=== PATIENT | male | born 1940 | race Caucasian/White ===

== ENCOUNTER 2018-06-12 16:20 | Inpatient (IN) | payer MEDICARE ==
--- NOTE | 2018-06-12 16:37 | ED Physician Chart ---
ED Chief Complaint/HPI - Patient Information Date Seen:: 06/12/18 Time Seen:: 16:50 Chief Complaint:: Depression History of Present Illness:: onset x 2 days of depression; no report of trauma, LOC, ALOC, AMS, SIs, H/As, neck pain, C/P, SOB, Abd. pain, A/N/V/D/C, fever, chills, or urinary s/s Historian:: Patient, EMS Review:: Nurse's Note Reviewed, Old Chart Reviewed, EMS run form Reviewed ED Review of Systems - Review of Systems General/Constitutional: No fever, No chills, No weight loss, No weakness, No diaphoresis, No edema, No loss of appetite Skin: No skin lesions, No rash, No bruising Head: No headache, No light-headedness Eyes: No loss of vision, No pain, No diplopia ENT: No earache, No nasal drainage, No sore throat, No tinnitus Neck: No neck pain, No swelling, No thyromegaly, No stiffness, No mass noted Cardio Vascular: No chest pain, No palpitations, No PND, No orthopnea, No edema Pulmonary: No SOB, No cough, No sputum, No wheezing GI: No nausea, No vomiting, No diarrhea, No pain, No melena, No hematochezia, No constipation, No hematemesis G/U: No dysuria, No frequency, No hematuria, No nacturia Musculoskeletal: No bone or joint pain, No back pain, No muscle pain Endocrine: No polyuria, No polydipsia Psychiatric: Prior psych history, Depression, Anxiety, No suicidal ideation, No homicidal ideation, No auditory hallucination, No visual hallucination Hematopoietic: No bruising, No lymphadenopathy Allergic/Immuno: No urticaria, No angioedema Neurological: No syncope, No focal symptoms, No weakness, No paresthesia, No headache, No seizure, No dizziness, Confusion, No vertigo ED Past Medical History - Past Medical History Obtainable: Yes Past Medical History: HTN, DM, CHF, Dyslipidemia, Dementia Family History: HTN Social History: Non Smoker, No Alcohol, No Drug Use, Single, Care Facility Surgical History: None Psychiatricy History: Depression, Dementia Medication: Reviewed Family Medical History - Family Member Mother History Unknown: Yes ED Physical Exam - Physical Examination General/Constitutional: Awake, Well-developed, well-nourished, Alert, No distress, GCS 15, Non-toxic appearing, Ambulatory Head: Atraumatic Eyes: Lids, conjuctiva normal, PERRL, EOMI Skin: Nl inspection, No rash, No skin lesions, No ecchymosis, Well hydrated, No lymphadenopathy ENMT: External ears, nose nl, TM canals nl, Nasal exam nl, Lips, teeth, gums nl , Oropharynx nl, Tonsils nl Neck: Nontender, Full ROM w/o pain, No JVD, No nuchal rigidity, No bruit, No mass, No stridor Respiratory: Nl effort/Exclusion, Clear to Auscultation, No Wheeze/Rhonchi/Rales Cardio Vascular: RRR, No murmur, gallop, rubs, NL S1 S2, Carotid/Femoral/Distal pulses equal bilaterally GI: No tenderness/rebounding/guarding, No organomegaly, No hernia, Normal BS's, Nondistended, No mass/bruits, No McBurney tenderness : No CVA tenderness Extremities: No tenderness or effusion, Full ROM, normal strength in all extremities, No edema, Normal digits & nails Neuro/Psych: Alert/oriented, DTR's symmetric, Normal sensory exam, Normal motor strength, Judgement/insight normal, Mood normal, Normal gait, No focal deficits Other Neuro/Psych comments:: + Psychomotor Retardation; no SIs; Disoriented and Confused; Mood/Affect: Labile Misc: Normal back, No paraspinal tenderness ED Labs/Radiology/EKG Results - Lab Results Comments:: Reviewed - EKG Interpretations EKG Time:: 17:02 Rate & Rhythm: 62; NSR Comments:: non-specific st-t changes ED Septic Shock - . Is Septic Shock (SBP<90, OR Lactate>4 mmol\L) present?: No ED Reassessment (Disposition) - Reassessment Reassessment Condition:: Improved - Diagnosis Diagnosis:: Depression; Dementia; Medical Clearance; UTI; Bipolar Disorder - Aftercare/Follow up Instructions Aftercare/Follow-Up Instructions:: Counseled pt regarding lab results/diagnosis & need follow up, Counseled pt & family regarding lab results/diagnosis & need follow up - Patient Disposition Discharge/Transfer:: Acute Care w/in this hosp Admitted to:: [facility] Condition at Disposition:: Stable, Improved
[2018-06-12 17:00] LABS: BASOPHILE ABSOLUTE 0.1 Th/cumm (0-0.2); EOSINOPHILE ABSOLUTE 0.6 Th/cmm (0.1-0.4); HEMOGLOBIN 13.7 gm/dL (12-16); LYMPHOCYTE ABSOLUTE 1.6 Th/cmm (1.5-3.0); MEAN PLATELET VOLUME 8.1 fl; MONOCYTE ABSOLUTE 0.6 Th/cmm (0.3-1.0)
[2018-06-12 17:02] LABS: % BASOPHILS 0.9 % (0.0-2.0); % EOSINOPHILS 7.2 % (0.0-5.0); % LYMPHOCYTES 19.5 % (20.0-50.0); % MONOCYTES 7.6 % (2.0-10.0); % NEUTROPHILS 64.8 % (40.0-80.0); HEMATOCRIT 40.2 % (41.0-60); MEAN CELL VOLUME 91.4 fl (80-99); MEAN CORPUSCULAR HEMOGLOBIN 31.3 pg (27.0-31.0); MEAN CORPUSCULAR HGB CONC 34.2 pg (28.0-36.0); NEUTROPHILE ABSOLUTE 5.4 Th/cmm (1.8-8.0); PLATELET COUNT 254 Th/cmm (150-400); RED CELL DISTRIBUTION WIDTH 13.4 % (11.5-20.0); WHITE BLOOD COUNT 8.3 Th/cmm (4.8-10.8)
[2018-06-12 17:14] LABS: URINE SOURCE CLEAN C
[2018-06-12 17:21] LABS: ACETAMINOPHEN < 10.0 ug/mL (10.0-30.0); ALBUMIN 3.6 gm/dL (4.2-5.5); ALKALINE PHOSPHATASE 131 U/L (34-104); ANION GAP 12.2 (7.0-16.0); BILIRUBIN,TOTAL 0.3 mg/dL (0.3-1.0); BUN - UREA NITROGEN 29 mg/dL (7-25); CALCIUM SERUM 9.1 mg/dL (8.6-10.3); CARBON DIOXIDE 27.1 mEq/L (21.0-31.0); CHLORIDE 102 mEq/L (98-107); CHOLESTEROL 114 mg/dL (<200); CREATININE - SERUM 1.1 mg/dL (0.7-1.3); GLUCOSE 149 mg/dL (70-105); HDL -HIGH DENSITY LIPOPROTEIN 34 mg/dL (23-92); POTASSIUM SERUM 4.3 mEq/L (3.5-5.1); SGOT 22 U/L (13-39); SGPT/ALT 25 U/L (7-52); SODIUM SERUM 137 mEq/L (136-145); TOTAL PROTEIN,SERUM 7.1 gm/dL (6.0-8.3); TRIGLYCERIDES 131 mg/dL (<150)
[2018-06-12 17:25] LABS: SALICYLATES (ASPIRIN) < 25.0 mg/L (30.0-100.0)
[2018-06-12 17:31] LABS: AMPHETAMINE URINE NEGATIVE (NEGATIVE); BARBITURATES URINE NEGATIVE (NEGATIVE); BENZODIAZEPINES QUAL URINE NEGATIVE (NEGATIVE); CANNABINOID THC NEGATIVE (NEGATIVE); COCAINE METABOLITE QUAL URINE NEGATIVE (NEGATIVE); METHADONE URINE NEGATIVE (NEGATIVE); METHAMPHETAMINES QUAL URINE NEGATIVE (NEGATIVE); OPIATES (MORPHINE) QUAL. URINE NEGATIVE (NEGATIVE); PHENCYCLIDINE (PCP) URINE NEGATIVE (NEGATIVE); TRICYCLICS (TCA) QUAL. URINE NEGATIVE (NEGATIVE)
[2018-06-12 17:37] LABS: URINE BILIRUBIN NEGATIVE (NEGATIVE); URINE BLOOD TRACE (NEGATIVE); URINE CLARITY HAZY (CLEAR); URINE COLOR YELLOW; URINE GLUCOSE (UA) NEGATIVE (NEGATIVE); URINE KETONE NEGATIVE (NEGATIVE); URINE LEUKOCYTE ESTERASE LARGE (NEGATIVE); URINE MICROSCOPIC INDICATED? YES; URINE NITRATE POSITIVE (NEGATIVE); URINE PH 6.5 (4.6 - 8.0); URINE PROTEIN NEGATIVE (NEGATIVE); URINE UROBILINOGEN 0.2 E.U./dL (0.2 - 1.0)
[2018-06-12 17:40] LABS: URINE BACTERIA 4+ /hpf (NONE SEEN); URINE EPITHELIAL CELLS FEW /lpf (FEW); URINE WBC 50-100 /hpf (0-5)
[2018-06-12 20:11] VITALS: BP 144/88
[2018-06-12] MEDS ORDERED: Docusate Sodium/Senna Tab PO PRN (22:07)
[2018-06-12] MEDS ORDERED: Acetaminophen 500 MG TAB PO PRN (22:07)
[2018-06-12] MEDS ORDERED: Magnesium Hydroxide (MOM) 30 mL UDC PO PRN (22:07)
[2018-06-13 06:34] LABS: CHOLESTEROL 108 mg/dL (<200); HDL -HIGH DENSITY LIPOPROTEIN 35 mg/dL (23-92); TRIGLYCERIDES 94 mg/dL (<150)
[2018-06-13] MEDS: Multivitamin w/ Minerals Tab PO SCH (08:55)
[2018-06-13] MEDS: INSULIN ASPART SLIDING SCALE 100 UNITS/ML UNIT SUBQ SCH ×2 (08:56→17:09)
--- NOTE | 2018-06-13 22:20 | Psychiatric Evaluation ---
DATE OF SERVICE: 06/12/2018 PSYCHIATRIC PROGRESS NOTE IDENTIFYING DATA: The patient is a 78-year-old male, resident of [facility]. Information was obtained by directly interviewing the patient as well as reviewing the admission papers and they are reliable. JUSTIFICATION FOR HOSPITALIZATION: The patient is admitted on a voluntary basis in view of his depression. CHIEF COMPLAINT: "I am feeling depressed." HISTORY OF PRESENT ILLNESS: This is the first psychiatric hospitalization to the [facility] for this patient, who has reported to have been feeling depressed. The patient has been having difficult time to cope with the stress. The patient is isolative and withdrawn. The patient has been feeling frustrated with his situation. The patient; however, has been having short term memory deficits and long-term memory seems to be fair and the patient is not able to articulate in detail the problems. PAST PSYCHIATRIC HISTORY: Details are not known. MEDICAL HISTORY AND PHYSICAL EXAMINATION: Requested to be done by Dr. Swartz. SUBSTANCE ABUSE HISTORY: None. PHYSICAL OR SEXUAL ABUSE HISTORY: None. LEGAL PROBLEMS: None at this time. STRENGTH AND ASSETS: The patient is motivated. MENTAL STATUS EXAMINATION: The patient is a 78-year-old looking his stated age, superficially cooperative. Eye contact is poor. Mood is noted to be depressed. Affect is constricted. Coping skills at this time are noted to be still poor. The patient has been having difficult time to cope with the stress. The patient has not been presenting with any suicidal ideation. No homicidal ideation is noted. The patient denies any auditory hallucinations. No delusions are noted, but the patient is getting easily frustrated when I am asking the questions. The patient's short term memory is noted to be poor and long-term memory seems to be fair. DIAGNOSTIC IMPRESSION: AXIS IA: Major depressive disorder, recurrent and moderate. AXIS IB: Dementia and behavioral change, secondary trait. IMMEDIATE TREATMENT PLAN: The patient is going to be observed on inpatient unit, provided with supportive psychotherapy. The patient is going to be closely monitored. Once stabilized, the patient is going to be discharged to the [facility] for further follow up. JOB# [id number]
[2018-06-14] MEDS ORDERED: Escitalopram Oxalate 5 mg Tab PO SCH (09:00)
[2018-06-14] MEDS: INSULIN ASPART SLIDING SCALE 100 UNITS/ML UNIT SUBQ SCH (09:04)
[2018-06-14] MEDS: Multivitamin w/ Minerals Tab PO SCH (09:04)
--- NOTE | 2018-06-14 13:19 | Progress Notes ---
DATE: 06/14/2018 SUBJECTIVE: Staff was spoken to. The patient is interviewed. Mood is noted to be anxious. The patient is isolative and withdrawn. Insight and judgment at this time, still impaired. Impulse control is limited. The patient's coping skills are noted to be very poor. The patient has been still not able to participate in any of the groups. The patient has no energy. The patient reporting that he is very tired. ASSESSMENT: The patient is still depressed. PLAN: To continue the patient with the supportive therapy and followup. JOB# [id number]
--- NOTE | 2018-06-15 18:18 | History & Physical ---
ADMIT DATE: 06/12/2018 HISTORY OF PRESENT ILLNESS: The patient was admitted on 06/12/2018. The patient had 2-day onset of severe depression. No loss of consciousness noted in the medical record, no change of consciousness. No history of neck pain, shortness of breath, etc. The patient came to the Emergency Room, was admitted from the Emergency Room. REVIEW OF SYSTEMS: Except for depression everything was negative. PAST MEDICAL HISTORY: The patient has a history of hypertension, diabetes, CHF, hyperlipidemia, and dementia. SOCIAL HISTORY: Nonsmoker. PSYCHIATRIC HISTORY: Depression and dementia. PHYSICAL EXAMINATION: GENERAL: Awake, alert, slightly confused. The patient is not in acute distress. No hallucination. HEAD: Normal. ENT: Normal. NECK: Supple, nontender. LUNGS: Clear. CARDIOVASCULAR SYSTEM: S1, S2 heard. ABDOMEN: Soft. Bowel sounds are heard. CENTRAL NERVOUS SYSTEM: Decreased sensorium. DIAGNOSES: Psychomotor retardation with slight confusion, history of hypertension, history of dementia was made. PLAN: The patient is being admitted and I will control his blood pressure and diabetes. I will have the psychiatrist, Dr. Galeana see the patient. I will follow the patient. Again, the diagnoses is acute aggressive behaviour, psychosis, history of hypertension, diabetes, CHF, hyperlipidemia. JOB# [id number]
== END 2018-06-14 15:00 | disposition short-term general hospital (02) | DRG 885 ==
LOC: ER 16:20 → GERO 18:44
PROVIDERS: ADMIT Psychiatry & Neurology Psychiatry; ATTEND Psychiatry & Neurology Psychiatry
DX: F33.1 Major depressive disorder, recurrent, moderate (principal); N39.0 Urinary tract infection, site not specified; F03.91 Unspecified dementia, unspecified severity, with behavioral disturbance; I11.0 Hypertensive heart disease with heart failure; I50.9 Heart failure, unspecified; E11.9 Type 2 diabetes mellitus without complications; E78.5 Hyperlipidemia, unspecified; Z82.49 Family history of ischemic heart disease and other diseases of the circulatory system
CPT/HCPCS: 36415-UA; 80053-TC; 80061-TC; 80307; 80320-TC; 80329-TC; 81001-TC; 82948-90; 83036-90; 84443-TC; 84484-TC; 85025-TC; 86592-TC; 87086-90; 93005; J1815; Z7610

== ENCOUNTER 2018-06-14 15:00 | Inpatient (IN) | payer MEDICARE ==
[2018-06-14 16:43] VITALS: BP 124/58
[2018-06-14] MEDS: Sodium Chloride 0.9% 1,000 ML IV SCH (17:16)
[2018-06-14 17:17] LABS: % BASOPHILS 0.9 % (0.0-2.0); % EOSINOPHILS 7.1 % (0.0-5.0); % LYMPHOCYTES 23.8 % (20.0-50.0); % MONOCYTES 10.1 % (2.0-10.0); % NEUTROPHILS 58.1 % (40.0-80.0); BASOPHILE ABSOLUTE 0.1 Th/cumm (0-0.2); EOSINOPHILE ABSOLUTE 0.5 Th/cmm (0.1-0.4); HEMATOCRIT 39.4 % (41.0-60); HEMOGLOBIN 13.4 gm/dL (12-16); LYMPHOCYTE ABSOLUTE 1.6 Th/cmm (1.5-3.0); MEAN CELL VOLUME 90.9 fl (80-99); MEAN CORPUSCULAR HGB CONC 34.1 pg (28.0-36.0); MONOCYTE ABSOLUTE 0.7 Th/cmm (0.3-1.0); NEUTROPHILE ABSOLUTE 3.8 Th/cmm (1.8-8.0); PLATELET COUNT 213 Th/cmm (150-400); RED BLOOD COUNT 4.33 Mil/cmm (3.80-5.80); WHITE BLOOD COUNT 6.7 Th/cmm (4.8-10.8)
[2018-06-14 17:38] LABS: ANION GAP 10.8 (7.0-16.0); BUN - UREA NITROGEN 28 mg/dL (7-25); CALCIUM SERUM 9.1 mg/dL (8.6-10.3); CARBON DIOXIDE 26.5 mEq/L (21.0-31.0); CHLORIDE 106 mEq/L (98-107); CREATININE - SERUM 1.4 mg/dL (0.7-1.3); GLUCOSE 104 mg/dL (70-105); POTASSIUM SERUM 4.3 mEq/L (3.5-5.1); SODIUM SERUM 139 mEq/L (136-145)
[2018-06-14] MEDS ORDERED: Influenza Vaccine (65 yr & older) 0.5 ml Syr IM ONE (17:50)
[2018-06-14] MEDS ORDERED: Pneumococcal Vaccine 0.5 mL Vial IM ONE (17:50)
[2018-06-14] MEDS ORDERED: Docusate Sodium/Senna Tab PO PRN (21:42)
[2018-06-14] MEDS ORDERED: Magnesium Hydroxide (MOM) 30 mL UDC PO PRN (21:42)
[2018-06-14] MEDS ORDERED: Acetaminophen 500 MG TAB PO PRN (21:42)
[2018-06-15] MEDS: Sodium Chloride 0.9% 1,000 ML IV SCH (05:53)
[2018-06-15 06:25] LABS: % BASOPHILS 1.1 % (0.0-2.0); % EOSINOPHILS 8.8 % (0.0-5.0); % LYMPHOCYTES 25.3 % (20.0-50.0); % MONOCYTES 9.4 % (2.0-10.0); % NEUTROPHILS 55.4 % (40.0-80.0); BASOPHILE ABSOLUTE 0.1 Th/cumm (0-0.2); EOSINOPHILE ABSOLUTE 0.6 Th/cmm (0.1-0.4); HEMATOCRIT 37.4 % (41.0-60); HEMOGLOBIN 12.7 gm/dL (12-16); LYMPHOCYTE ABSOLUTE 1.8 Th/cmm (1.5-3.0); MEAN CELL VOLUME 90.5 fl (80-99); MEAN CORPUSCULAR HEMOGLOBIN 30.8 pg (27.0-31.0); MEAN CORPUSCULAR HGB CONC 34.1 pg (28.0-36.0); MEAN PLATELET VOLUME 8.3 fl; MONOCYTE ABSOLUTE 0.7 Th/cmm (0.3-1.0); NEUTROPHILE ABSOLUTE 4.1 Th/cmm (1.8-8.0); PLATELET COUNT 196 Th/cmm (150-400); RED BLOOD COUNT 4.13 Mil/cmm (3.80-5.80); RED CELL DISTRIBUTION WIDTH 13.2 % (11.5-20.0); WHITE BLOOD COUNT 7.3 Th/cmm (4.8-10.8)
[2018-06-15 06:38] LABS: ANION GAP 10.9 (7.0-16.0); BUN - UREA NITROGEN 27 mg/dL (7-25); CALCIUM SERUM 8.7 mg/dL (8.6-10.3); CHLORIDE 106 mEq/L (98-107); CREATININE - SERUM 1.3 mg/dL (0.7-1.3); GLUCOSE 87 mg/dL (70-105); POTASSIUM SERUM 3.9 mEq/L (3.5-5.1); SODIUM SERUM 138 mEq/L (136-145)
[2018-06-15] MEDS: INSULIN ASPART SLIDING SCALE 100 UNITS/ML UNIT SUBQ SCH ×2 (08:43→17:45)
[2018-06-15] MEDS: Escitalopram Oxalate 5 mg Tab PO SCH (09:49)
[2018-06-15] MEDS: Multivitamin w/ Minerals Tab PO SCH (09:52)
[2018-06-15] MEDS ORDERED: Probiotic Screen MC PRN (10:19)
[2018-06-15] MEDS ORDERED: VTE Chemical Prophylaxis Screen/Admission MC PRN (10:52)
--- NOTE | 2018-06-15 14:10 | Consultation ---
Consult Note - Consult Note Service Date: 06/15/18 Referring Physician: Hector Swartz Consult Note: PHYSICIAN Consultation Note: Date of Admission: 06/14/18 Purpose of Consultation: UTI Chief Complaint: Patient PERCY LEMOS was admitted to [facility] with UTI. History of Present Illness: 78 year old male was brought from [facility] unit for UTI. Past Medical History: Allergies Allergy/AdvReac Type Severity Reaction Status Date / Time No Known Allergies Allergy Verified 06/12/18 16:51 Vital Signs Temp 97.8 F 06/15/18 11:25 Pulse 71 06/15/18 11:25 Resp 18 06/15/18 11:29 BP 130/52 06/15/18 11:25 Pulse Ox 97 06/15/18 11:25 Intake & Output 06/14/18 06/15/18 06/15/18 18:59 06:59 18:59 Intake Total 50 996.25 Output Total 350 350 Balance -300 646.25 Weight (lbs) 95.254 kg 95.254 kg Intake: Intake, IV Amount 996.25 Piperacillin Sodium/ 50 Tazobact 3.375 gm In Sodium Chloride 0.9% 50 ml @ 100 mls/hr IV Q8HR [facility] Rx#:[id number] Sodium Chloride 0.9% 1, 946.25 000 ml @ 75 mls/hr IV . [id number] [facility] Rx#:[id number] Oral 50 Output: Urine 350 350 Other: # Bowel Movements 1 1 Stool Characteristics Soft Weight Source Bedscale Patient stated Laboratory Results - last 24 hr 06/14/18 06/14/18 06/15/18 17:09 17:09 05:55 WBC 6.7 7.3 RBC 4.33 4.13 Hgb 13.4 12.7 Hct 39.4 L 37.4 L MCV 90.9 90.5 MCH 31.0 30.8 MCHC Differential 34.1 34.1 RDW 13.0 13.2 Plt Count 213 196 MPV 8.0 8.3 Neutrophils % 58.1 55.4 Lymphocytes % 23.8 25.3 Monocytes % 10.1 H 9.4 Eosinophils % 7.1 H 8.8 H Basophils % 0.9 1.1 Sodium 139 Potassium 4.3 Chloride 106 Carbon Dioxide 26.5 Anion Gap 10.8 BUN 28 H Creatinine 1.4 H Est GFR ( Amer) TNP Est GFR (Non-Af Amer) TNP BUN/Creatinine Ratio 20.0 Glucose 104 Calcium 9.1 06/15/18 05:55 WBC RBC Hgb Hct MCV MCH MCHC Differential RDW Plt Count MPV Neutrophils % Lymphocytes % Monocytes % Eosinophils % Basophils % Sodium 138 Potassium 3.9 Chloride 106 Carbon Dioxide 25.0 Anion Gap 10.9 BUN 27 H Creatinine 1.3 Est GFR ( Amer) TNP Est GFR (Non-Af Amer) TNP BUN/Creatinine Ratio 20.8 Glucose 87 Calcium 8.7 Home Medication Medication Instructions Recorded Type Acetaminophen [Tylenol Extra 500 mg PO Q4HR PRN tab 06/14/18 Rx Strength] Ascorbic Acid [Vitamin C] 500 mg PO DAILY tab 06/14/18 Rx Bisacodyl [Dulcolax 10 Mg Supp] 10 mg RC DAILY PRN sup 06/14/18 Rx Docusate Sodium/Senna [Senna Plus 1 tab PO BID PRN tab 06/14/18 Rx 50 mg-8.6 mg] Escitalopram Oxalate [Lexapro] 5 mg PO DAILY tab 06/14/18 Rx Insulin Aspart Sliding Scale See Protocol SUBQ BID unit 06/14/18 Rx [NovoLOG INSULIN SLIDING SCALE] Isosorbide Mononitrate [Imdur] [address] 06/14/18 Rx Levofloxacin [Levaquin] 500 mg PO DAILY@2000 tab 06/14/18 Rx Lorazepam [Ativan] 0.5 mg PO Q4HR PRN tab 06/14/18 Rx Magnesium Hydroxide [Milk of 30 ml PO DAILY PRN udc 06/14/18 Rx Magnesia] Metoprolol Tartrate [Lopressor] 50 mg PO BID tab 06/14/18 Rx Multivitamin w/ Minerals 1 tab PO DAILY tab 06/14/18 Rx [Theragran M] Nitroglycerin [Nitrostat*] 0.4 mg SL Q5MIN PRN tab 06/14/18 Rx Rivaroxaban [Xarelto] 15 mg PO DAILY tab 06/14/18 Rx Simvastatin [Zocor*] 20 mg PO HS tab 06/14/18 Rx Zolpidem Tartrate [Ambien] 5 mg PO HS PRN tab 06/14/18 Rx hydrOXYzine [Atarax*] 25 mg PO QID tab 06/14/18 Rx Current Medications Generic Name Dose Route Start Last Admin Trade Name Freq PRN Reason Stop Dose Admin Acetaminophen 500 mg 06/14/18 21:42 Tylenol Extra Strength PO 08/13/18 21:41 Q4HR PRN PAIN Ascorbic Acid 500 mg 06/15/18 09:00 06/15/18 09:49 Vitamin C PO 08/14/18 08:59 500 mg DAILY [facility] Administration Bisacodyl 10 mg 06/14/18 21:42 Dulcolax 10 Mg Supp RC 08/13/18 21:41 DAILY PRN IF MOM INEFFECTIVE Escitalopram Oxalate 5 mg 06/15/18 09:00 06/15/18 09:49 Lexapro PO 08/14/18 08:59 5 mg DAILY [facility] Administration Protocol Hydroxyzine HCl 25 mg 06/15/18 09:00 06/15/18 09:50 Atarax PO 08/14/18 08:59 25 mg QID [facility] Administration Protocol Sodium Chloride 1,000 mls @ 75 mls/hr 06/14/18 16:45 06/15/18 05:53 Nacl 0.9% IV 08/13/18 16:44 75 mls/hr .[id number] [facility] Administration Piperacillin Sod/Tazobactam 50 mls @ 100 mls/hr 06/14/18 21:00 06/15/18 06:08 Sod 3.375 gm/ Sodium Chloride IV 08/13/18 20:59 100 mls/hr Q8HR [facility] Administration Insulin Aspart 0 units 06/15/18 09:00 06/15/18 08:43 Novolog Insulin Sliding Scale SUBQ 08/14/18 08:59 Not Given BID [facility] Protocol Isosorbide Mononitrate 30 mg 06/15/18 09:00 06/15/18 09:50 Imdur PO 08/14/18 08:59 30 mg DAILY [facility] Administration Lactobacillus Rhamnosus 1 each 06/16/18 09:00 Culturelle 15b PO 08/15/18 08:59 DAILY [facility] Lorazepam 0.5 mg 06/14/18 21:42 Ativan PO 08/13/18 21:41 Q4HR PRN Anxiety Protocol Magnesium Hydroxide 30 ml 06/14/18 21:42 Milk Of Magnesia PO 08/13/18 21:41 DAILY PRN BOWEL MAINTENANCE Metoprolol Tartrate 50 mg 06/15/18 09:00 06/15/18 09:52 Lopressor PO 08/14/18 08:59 50 mg BID [facility] Administration Miscellaneous 1 ea 06/15/18 10:19 Probiotic Screen 08/14/18 10:18 PRN PRN PROTOCOL Miscellaneous 1 ea 06/15/18 10:52 Vte Chemical Prophylaxis Screen/ Admission 08/14/18 10:51 PRN PRN PROTOCOL Nitroglycerin 0.4 mg 06/14/18 21:42 Nitrostat SL 08/13/18 21:41 Q5MIN PRN Chest Pain Rivaroxaban 15 mg 06/15/18 09:00 06/15/18 09:52 Xarelto PO 08/14/18 08:59 15 mg DAILY [facility] Administration Sennosides 1 tab 06/14/18 21:42 Senna Plus 50 Mg-8.6 Mg PO 08/13/18 21:41 BID PRN Constipation Simvastatin 20 mg 06/15/18 21:00 Zocor PO 08/14/18 20:59 HS [facility] Protocol Zolpidem Tartrate 5 mg 06/14/18 21:42 Ambien PO 08/13/18 21:41 HS PRN Insomnia Review of Systems: A 12 point ROS was reviewed with the pertinent positive and negatives noted in the HPI. Social History Smoking Status Unknown if ever smoked Family Medical History Family Medical History Start: 06/14/18 15: 47 Freq: ONCE Status: Active Protocol: Document 06/14/18 15:47 [facility] (Rec: 06/14/18 17:50 [facility] [id number]) Family Medical History Mother History Unknown Yes Physical Exam: General: cachectic, not in distress HEENT: HEAD: NC NT. Oral cavity moist, pink tongue. Eyes: pallor present. Pupil PERRLA. Neck: supple, no jvd, no carotid bruit. Cardio: s1 and s2 WNL. Respiratory: CTAP Abdominal: soft NT ND bs present. Genital/Urinary: Extremities: Soft NT ND present. Neurological: AAox3. Assessment: 1. UTI Pseudomonas. 2. Psychosis. Plan: Continue same treatment. Continue zosyn. Thank you, Dr Swartz for involving me in taking care of this patient. Leora, Yobani Mccollum M.D. [id number]
[2018-06-16] MEDS: INSULIN ASPART SLIDING SCALE 100 UNITS/ML UNIT SUBQ SCH ×2 (08:17→17:29)
[2018-06-16] MEDS: Multivitamin w/ Minerals Tab PO SCH (08:22)
[2018-06-16] MEDS: Escitalopram Oxalate 5 mg Tab PO SCH (08:22)
[2018-06-16] MEDS: Lactobacillus Rhamnosus GG 15 Billion CFU CAP.SPRINK PO SCH (08:22)
--- NOTE | 2018-06-16 11:15 | Progress Notes ---
DATE: 06/15/2018 PSYCHIATRIC PROGRESS NOTE SUBJECTIVE: Staff was spoken to. The patient is interviewed. Mood is noted to be irritable. Affect is constricted. The patient is isolative and withdrawn. The patient has been transferred to the Med-Surg unit in view of his urinary tract infection that needs to be treated with piperacillin and the patient is currently on Lexapro 5 mg. PLAN: To continue the patient with the current medication that is the Lexapro and I encouraged the patient to verbalize the concerns rather than to act out. JOB# [id number]
--- NOTE | 2018-06-16 15:47 | History & Physical ---
ADMIT DATE: 06/16/2018 CHIEF COMPLAINT: Urinary tract infection. HISTORY OF PRESENT ILLNESS: This is a 78-year-old male who was admitted from Geropsych unit, transferred to the med-surg unit due to urinary tract infection. REVIEW OF SYSTEMS: GENERAL: This is a 78-year-old male that appears as stated. HEAD: Denies headache, denies dizziness. EYES: Denies eye pain. Denies blurring of vision. NECK: Denies neck pain. Denies nuchal rigidity. CHEST: Denies chest pain. Denies palpitation. PULMONARY: Denies coughing. Denies shortness of breath. GASTROINTESTINAL: Denies abdominal pain. Denies constipation. Denies diarrhea. MUSCULOSKELETAL: Denies joint pain. Denies muscle pain. SOCIAL HISTORY: Currently admitted from Geropsych Unit due to psychiatric problems. PAST SURGICAL HISTORY: Unremarkable. FAMILY HISTORY: Unremarkable. PAST MEDICAL HISTORY: Includes hypertension, diabetes, hyperlipidemia and osteoarthritis. PHYSICAL EXAMINATION: VITAL SIGNS: Temperature 97.8, heart rate 58, blood pressure 140/50, respiration of 17, 100% on room air. GENERAL: This is a 78-year-old male that appears as stated, in no acute distress. HEENT: Head is atraumatic, normocephalic. Eyes: Bilateral conjunctivae are clear. Bilateral pupils equal, round and reactive. NECK: Supple. No JVD. CARDIOVASCULAR: S1 and S2, without murmur. PULMONARY: Clear to auscultation. GASTROINTESTINAL: Soft and nontender without guarding. Positive bowel sounds. MUSCULOSKELETAL: No clubbing. No cyanosis. Positive muscle weakness. ASSESSMENT: 1. Urinary tract infection. 2. Hypertension. 3. Diabetes. 4. Hyperlipidemia. 5. Osteoarthritis. 6. Atrial fibrillation. PLAN: Continue to keep the patient inpatient. We will follow up with ID doctor for antibiotic management. We are also going to follow up with psychiatrist to monitor the patient's condition and behavior. Treatment plans were discussed with the patient's nurse. Treatment plans were discussed with Dr. Swartz. JOB# [id number]
[2018-06-16] MEDS: Sodium Chloride 0.9% 1,000 ML IV SCH (16:31)
--- NOTE | 2018-06-16 22:16 | Progress Notes ---
DATE: 06/16/2018 PSYCHIATRIC PROGRESS NOTE SUBJECTIVE: Staff was spoken to. The patient is interviewed. Mood is noted to be depressed. Affect is constricted. Coping skills are noted to be still poor. The patient is isolative and withdrawn. The patient is not presenting with any suicidal threats, but the patient is not able to care for self. ASSESSMENT: The patient is still depressed. PLAN: To continue the patient with the supportive therapy and followup. [facility]# [id number]
[2018-06-17] MEDS: Sodium Chloride 0.9% 1,000 ML IV SCH ×2 (06:14→17:26)
[2018-06-17] MEDS: Lactobacillus Rhamnosus GG 15 Billion CFU CAP.SPRINK PO SCH (08:45)
[2018-06-17] MEDS: Multivitamin w/ Minerals Tab PO SCH (08:45)
[2018-06-17] MEDS: Escitalopram Oxalate 5 mg Tab PO SCH (08:45)
[2018-06-17] MEDS: INSULIN ASPART SLIDING SCALE 100 UNITS/ML UNIT SUBQ SCH ×2 (09:40→17:19)
--- NOTE | 2018-06-17 10:51 | Internal Medicine Prog Note ---
Internal Medicine Subjective - Subjective Patient seen and examined:: chart reviewed, other (trandfer to medical floor due to UTI ) Patient is:: awake, other (depressed,constricted ) Per staff patient has:: no adverse event, tolerating meds Internal Medicine Objective - Results Result Diagrams: 06/15/18 05:55 06/15/18 05:55 Recent Labs: Laboratory Last Values WBC 7.3 Th/cmm (4.8-10.8) 06/15/18 05:55 RBC 4.13 Mil/cmm (3.80-5.80) 06/15/18 05:55 Hgb 12.7 gm/dL (12-16) 06/15/18 05:55 Hct 37.4 % (41.0-60) L 06/15/18 05:55 MCV 90.5 fl (80-99) 06/15/18 05:55 MCH 30.8 pg (27.0-31.0) 06/15/18 05:55 MCHC Differential 34.1 pg (28.0-36.0) 06/15/18 05:55 RDW 13.2 % (11.5-20.0) 06/15/18 05:55 Plt Count 196 Th/cmm (150-400) 06/15/18 05:55 MPV 8.3 fl 06/15/18 05:55 Neutrophils % 55.4 % (40.0-80.0) 06/15/18 05:55 Lymphocytes % 25.3 % (20.0-50.0) 06/15/18 05:55 Monocytes % 9.4 % (2.0-10.0) 06/15/18 05:55 Eosinophils % 8.8 % (0.0-5.0) H 06/15/18 05:55 Basophils % 1.1 % (0.0-2.0) 06/15/18 05:55 Sodium 138 mEq/L (136-145) 06/15/18 05:55 Potassium 3.9 mEq/L (3.5-5.1) 06/15/18 05:55 Chloride 106 mEq/L (98-107) 06/15/18 05:55 Carbon Dioxide 25.0 mEq/L (21.0-31.0) 06/15/18 05:55 Anion Gap 10.9 (7.0-16.0) 06/15/18 05:55 BUN 27 mg/dL (7-25) H 06/15/18 05:55 Creatinine 1.3 mg/dL (0.7-1.3) 06/15/18 05:55 Est GFR ( Amer) TNP 06/15/18 05:55 Est GFR (Non-Af Amer) TNP 06/15/18 05:55 BUN/Creatinine Ratio 20.8 06/15/18 05:55 Glucose 87 mg/dL (70-105) 06/15/18 05:55 POC Glucose 160 MG/DL (70 - 105) H 06/16/18 16:26 Calcium 8.7 mg/dL (8.6-10.3) 06/15/18 05:55 - Physical Exam Vitals and I&O: Vital Signs Temp 96.8 F 06/17/18 08:00 Pulse 75 06/17/18 08:46 Resp 16 06/17/18 08:00 BP 120/50 06/17/18 08:46 Pulse Ox 100 06/17/18 08:00 Intake & Output 06/16/18 06/17/18 06/17/18 18:59 06:59 18:59 Intake Total 600 1150 Output Total 1400 680 Balance -800 470 Weight (lbs) 81.647 kg 81.647 kg Intake: Intake, IV Amount 100 1050 Piperacillin Sodium/ 100 50 Tazobact 3.375 gm In Sodium Chloride 0.9% 50 ml @ 100 mls/hr IV Q8HR [facility] Rx#:[id number] Sodium Chloride 0.9% 1, 1000 000 ml @ 75 mls/hr IV . [id number] [facility] Rx#:[id number] Oral 500 100 Output: Urine 1400 680 Other: # Bowel Movements 0 0 Weight Source Bedscale Bedscale Active Medications: Current Medications Acetaminophen (Tylenol Extra Strength) 500 mg PO Q4HR PRN PRN Reason: PAIN Stop: 08/13/18 21:41 Ascorbic Acid (Vitamin C) 500 mg PO DAILY [facility] Stop: 08/14/18 08:59 Last Admin: 06/17/18 08:45 Dose: 500 mg Bisacodyl (Dulcolax 10 Mg Supp) 10 mg RC DAILY PRN PRN Reason: IF MOM INEFFECTIVE Stop: 08/13/18 21:41 Escitalopram Oxalate (Lexapro) 5 mg PO DAILY [facility]; Protocol Stop: 08/14/18 08:59 Last Admin: 06/17/18 08:45 Dose: 5 mg Hydroxyzine HCl (Atarax) 25 mg PO QID [facility]; Protocol Stop: 08/14/18 08:59 Last Admin: 06/17/18 08:45 Dose: 25 mg Sodium Chloride (Nacl 0.9%) 1,000 mls @ 75 mls/hr IV .[id number] [facility] Stop: 08/13/18 16:44 Last Admin: 06/17/18 06:14 Dose: 75 mls/hr Piperacillin Sod/Tazobactam (Sod 3.375 gm/ Sodium Chloride) 50 mls @ 100 mls/ hr IV Q8HR [facility] Stop: 08/13/18 20:59 Last Admin: 06/17/18 04:51 Dose: 100 mls/hr Insulin Aspart (Novolog Insulin Sliding Scale) 0 units SUBQ BID [facility]; Protocol Stop: 08/14/18 08:59 Last Admin: 06/16/18 17:29 Dose: 2 units Isosorbide Mononitrate (Imdur) 30 mg PO DAILY [facility] Stop: 08/14/18 08:59 Last Admin: 06/17/18 08:46 Dose: 30 mg Lactobacillus Rhamnosus (Culturelle 15b) 1 each PO DAILY [facility] Stop: 08/15/18 08:59 Last Admin: 06/17/18 08:45 Dose: 1 each Lorazepam (Ativan) 0.5 mg PO Q4HR PRN; Protocol PRN Reason: Anxiety Stop: 08/13/18 21:41 Magnesium Hydroxide (Milk Of Magnesia) 30 ml PO DAILY PRN PRN Reason: BOWEL MAINTENANCE Stop: 08/13/18 21:41 Metoprolol Tartrate (Lopressor) 50 mg PO BID [facility] Stop: 08/14/18 08:59 Last Admin: 06/17/18 08:45 Dose: 50 mg Miscellaneous (Probiotic Screen) 1 ea PRN PRN PRN Reason: PROTOCOL Stop: 08/14/18 10:18 Miscellaneous (Vte Chemical Prophylaxis Screen/ Admission) 1 ea PRN PRN PRN Reason: PROTOCOL Stop: 08/14/18 10:51 Nitroglycerin (Nitrostat) 0.4 mg SL Q5MIN PRN PRN Reason: Chest Pain Stop: 08/13/18 21:41 Rivaroxaban (Xarelto) 15 mg PO DAILY [facility] Stop: 08/14/18 08:59 Last Admin: 06/17/18 08:44 Dose: 15 mg Sennosides (Senna Plus 50 Mg-8.6 Mg) 1 tab PO BID PRN PRN Reason: Constipation Stop: 08/13/18 21:41 Simvastatin (Zocor) 20 mg PO HS [facility]; Protocol Stop: 08/14/18 20:59 Last Admin: 06/16/18 20:38 Dose: 20 mg Zolpidem Tartrate (Ambien) 5 mg PO HS PRN PRN Reason: Insomnia Stop: 08/13/18 21:41 General: weak HEENT: NC/AT Neck: Supple Lungs: CTAB Cardiovascular: Normal S1, Normal S2 Extremities: clear Neurological: alert Internal Medicine Assmt/Plan - Assessment Assessment: uti depression htn dm hyperlipidemia oa atricl fibrilation - Plan Plan: antibiotics monitor labs vitals diet psych
--- NOTE | 2018-06-17 13:54 | Progress Notes ---
DATE: 06/17/2018 SUBJECTIVE: Staff was spoken to. The patient is interviewed. Chart is reviewed. The patient continues to be irritable and angry. Insight and judgment at this time are noted to be still impaired. Coping skills are noted to be very poor. The patient has been having difficult time to cope with the stress. ASSESSMENT: The patient is still depressed. PLAN: To continue the patient with the supportive therapy and continue the Lexapro and followup. [facility]# [id number]
--- NOTE | 2018-06-18 00:02 | Infectious Disease Prog Note ---
Infectious Disease Subjective - Review of Systems Service Date: 06/18/18 Subjective: There is no new change, no fever. Infectious Disease Objective - Results Result Diagrams: 06/15/18 05:55 06/15/18 05:55 Recent Labs: Laboratory Last Values WBC 7.3 Th/cmm (4.8-10.8) 06/15/18 05:55 RBC 4.13 Mil/cmm (3.80-5.80) 06/15/18 05:55 Hgb 12.7 gm/dL (12-16) 06/15/18 05:55 Hct 37.4 % (41.0-60) L 06/15/18 05:55 MCV 90.5 fl (80-99) 06/15/18 05:55 MCH 30.8 pg (27.0-31.0) 06/15/18 05:55 MCHC Differential 34.1 pg (28.0-36.0) 06/15/18 05:55 RDW 13.2 % (11.5-20.0) 06/15/18 05:55 Plt Count 196 Th/cmm (150-400) 06/15/18 05:55 MPV 8.3 fl 06/15/18 05:55 Neutrophils % 55.4 % (40.0-80.0) 06/15/18 05:55 Lymphocytes % 25.3 % (20.0-50.0) 06/15/18 05:55 Monocytes % 9.4 % (2.0-10.0) 06/15/18 05:55 Eosinophils % 8.8 % (0.0-5.0) H 06/15/18 05:55 Basophils % 1.1 % (0.0-2.0) 06/15/18 05:55 Sodium 138 mEq/L (136-145) 06/15/18 05:55 Potassium 3.9 mEq/L (3.5-5.1) 06/15/18 05:55 Chloride 106 mEq/L (98-107) 06/15/18 05:55 Carbon Dioxide 25.0 mEq/L (21.0-31.0) 06/15/18 05:55 Anion Gap 10.9 (7.0-16.0) 06/15/18 05:55 BUN 27 mg/dL (7-25) H 06/15/18 05:55 Creatinine 1.3 mg/dL (0.7-1.3) 06/15/18 05:55 Est GFR ( Amer) TNP 06/15/18 05:55 Est GFR (Non-Af Amer) TNP 06/15/18 05:55 BUN/Creatinine Ratio 20.8 06/15/18 05:55 Glucose 87 mg/dL (70-105) 06/15/18 05:55 POC Glucose 104 MG/DL (70 - 105) 06/17/18 16:42 Calcium 8.7 mg/dL (8.6-10.3) 06/15/18 05:55 - Physical Exam Vitals and I&O: Vital Signs Temp 97.4 F 06/17/18 20:00 Pulse 60 06/17/18 20:00 Resp 16 06/17/18 20:00 BP 123/65 06/17/18 20:00 Pulse Ox 98 06/17/18 20:00 Intake & Output 06/17/18 06/17/18 06/18/18 06:59 18:59 06:59 Intake Total 1200 1540 50 Output Total 680 780 Balance 520 760 50 Weight (lbs) 81.647 kg 81.647 kg 81.647 kg Intake: Intake, IV Amount 1100 890 50 Piperacillin Sodium/ 100 50 50 Tazobact 3.375 gm In Sodium Chloride 0.9% 50 ml @ 100 mls/hr IV Q8HR [facility] Rx#:[id number] Sodium Chloride 0.9% 1, 1000 840 000 ml @ 75 mls/hr IV . [id number] [facility] Rx#:[id number] Oral 100 650 Output: Urine 680 780 Other: # Voids 3 # Bowel Movements 0 1 Weight Source Bedscale Bedscale Bedscale Active Medications: Current Medications Acetaminophen (Tylenol Extra Strength) 500 mg PO Q4HR PRN PRN Reason: PAIN Stop: 08/13/18 21:41 Ascorbic Acid (Vitamin C) 500 mg PO DAILY [facility] Stop: 08/14/18 08:59 Last Admin: 06/17/18 08:45 Dose: 500 mg Bisacodyl (Dulcolax 10 Mg Supp) 10 mg RC DAILY PRN PRN Reason: IF MOM INEFFECTIVE Stop: 08/13/18 21:41 Escitalopram Oxalate (Lexapro) 5 mg PO DAILY [facility]; Protocol Stop: 08/14/18 08:59 Last Admin: 06/17/18 08:45 Dose: 5 mg Hydroxyzine HCl (Atarax) 25 mg PO QID [facility]; Protocol Stop: 08/14/18 08:59 Last Admin: 06/17/18 20:46 Dose: 25 mg Sodium Chloride (Nacl 0.9%) 1,000 mls @ 75 mls/hr IV .[id number] [facility] Stop: 08/13/18 16:44 Last Admin: 06/17/18 17:26 Dose: 75 mls/hr Piperacillin Sod/Tazobactam (Sod 3.375 gm/ Sodium Chloride) 50 mls @ 100 mls/ hr IV Q8HR [facility] Stop: 08/13/18 20:59 Last Infusion: 06/17/18 21:15 Dose: Infused Insulin Aspart (Novolog Insulin Sliding Scale) 0 units SUBQ BID [facility]; Protocol Stop: 08/14/18 08:59 Last Admin: 06/17/18 17:19 Dose: Not Given Isosorbide Mononitrate (Imdur) 30 mg PO DAILY [facility] Stop: 08/14/18 08:59 Last Admin: 06/17/18 08:46 Dose: 30 mg Lactobacillus Rhamnosus (Culturelle 15b) 1 each PO DAILY [facility] Stop: 08/15/18 08:59 Last Admin: 06/17/18 08:45 Dose: 1 each Lorazepam (Ativan) 0.5 mg PO Q4HR PRN; Protocol PRN Reason: Anxiety Stop: 08/13/18 21:41 Magnesium Hydroxide (Milk Of Magnesia) 30 ml PO DAILY PRN PRN Reason: BOWEL MAINTENANCE Stop: 08/13/18 21:41 Metoprolol Tartrate (Lopressor) 50 mg PO BID [facility] Stop: 08/14/18 08:59 Last Admin: 06/17/18 17:17 Dose: 50 mg Miscellaneous (Probiotic Screen) 1 ea [facility] PRN PRN PRN Reason: PROTOCOL Stop: 08/14/18 10:18 Miscellaneous (Vte Chemical Prophylaxis Screen/ Admission) 1 ea [facility] PRN PRN PRN Reason: PROTOCOL Stop: 08/14/18 10:51 Nitroglycerin (Nitrostat) 0.4 mg SL Q5MIN PRN PRN Reason: Chest Pain Stop: 08/13/18 21:41 Rivaroxaban (Xarelto) 15 mg PO DAILY [facility] Stop: 08/14/18 08:59 Last Admin: 06/17/18 08:44 Dose: 15 mg Sennosides (Senna Plus 50 Mg-8.6 Mg) 1 tab PO BID PRN PRN Reason: Constipation Stop: 08/13/18 21:41 Simvastatin (Zocor) 20 mg PO HS [facility]; Protocol Stop: 08/14/18 20:59 Last Admin: 06/17/18 20:46 Dose: 20 mg Zolpidem Tartrate (Ambien) 5 mg PO HS PRN PRN Reason: Insomnia Stop: 08/13/18 21:41 General: no acute distress, well developed, well nourished HEENT: atraumatic, normocephalic, PERRLA, EOMI Neck: supple, no thyromegaly Cardiovascular: S1S2, regular Lungs: clear to auscultation bilaterally, clear to percussion Abdomen: soft, no tender, no distended Extremities: no cyanosis, no clubbing, no edema Neurological: awake, alert, oriented Skin: intact Infectious Disease Assmt/Plan - Assessment Assessment: 1. UTI Pseudomonas. 2. Psychosis. - Plan Plan: CPm. blum
[2018-06-18] MEDS: Sodium Chloride 0.9% 1,000 ML IV SCH (04:28)
[2018-06-18 08:34] LABS: % BASOPHILS 1.1 % (0.0-2.0); % EOSINOPHILS 5.9 % (0.0-5.0); % LYMPHOCYTES 18.2 % (20.0-50.0); % MONOCYTES 7.3 % (2.0-10.0); % NEUTROPHILS 67.5 % (40.0-80.0); BASOPHILE ABSOLUTE 0.1 Th/cumm (0-0.2); EOSINOPHILE ABSOLUTE 0.5 Th/cmm (0.1-0.4); HEMATOCRIT 37.7 % (41.0-60); HEMOGLOBIN 13.1 gm/dL (12-16); LYMPHOCYTE ABSOLUTE 1.4 Th/cmm (1.5-3.0); MEAN CELL VOLUME 90.7 fl (80-99); MEAN CORPUSCULAR HEMOGLOBIN 31.5 pg (27.0-31.0); MEAN CORPUSCULAR HGB CONC 34.7 pg (28.0-36.0); MEAN PLATELET VOLUME 8.2 fl; MONOCYTE ABSOLUTE 0.6 Th/cmm (0.3-1.0); NEUTROPHILE ABSOLUTE 5.1 Th/cmm (1.8-8.0); PLATELET COUNT 184 Th/cmm (150-400); RED BLOOD COUNT 4.15 Mil/cmm (3.80-5.80); RED CELL DISTRIBUTION WIDTH 13.2 % (11.5-20.0); WHITE BLOOD COUNT 7.7 Th/cmm (4.8-10.8)
[2018-06-18 08:47] LABS: ANION GAP 10.1 (7.0-16.0); BUN - UREA NITROGEN 24 mg/dL (7-25); CALCIUM SERUM 8.6 mg/dL (8.6-10.3); CARBON DIOXIDE 25.8 mEq/L (21.0-31.0); CHLORIDE 108 mEq/L (98-107); CREATININE - SERUM 1.2 mg/dL (0.7-1.3); GLUCOSE 96 mg/dL (70-105); POTASSIUM SERUM 3.9 mEq/L (3.5-5.1); SODIUM SERUM 140 mEq/L (136-145)
[2018-06-18] MEDS: Escitalopram Oxalate 5 mg Tab PO SCH (09:31)
[2018-06-18] MEDS: Multivitamin w/ Minerals Tab PO SCH (09:31)
[2018-06-18] MEDS: Lactobacillus Rhamnosus GG 15 Billion CFU CAP.SPRINK PO SCH (09:32)
--- NOTE | 2018-06-18 14:10 | Infectious Disease Prog Note ---
Infectious Disease Subjective - Review of Systems Service Date: 06/18/18 Subjective: There is no new change, no fever. Infectious Disease Objective - Results Result Diagrams: 06/18/18 08:30 06/18/18 08:30 Recent Labs: Laboratory Last Values WBC 7.7 Th/cmm (4.8-10.8) 06/18/18 08:30 RBC 4.15 Mil/cmm (3.80-5.80) 06/18/18 08:30 Hgb 13.1 gm/dL (12-16) 06/18/18 08:30 Hct 37.7 % (41.0-60) L 06/18/18 08:30 MCV 90.7 fl (80-99) 06/18/18 08:30 MCH 31.5 pg (27.0-31.0) H 06/18/18 08:30 MCHC Differential 34.7 pg (28.0-36.0) 06/18/18 08:30 RDW 13.2 % (11.5-20.0) 06/18/18 08:30 Plt Count 184 Th/cmm (150-400) 06/18/18 08:30 MPV 8.2 fl 06/18/18 08:30 Neutrophils % 67.5 % (40.0-80.0) 06/18/18 08:30 Lymphocytes % 18.2 % (20.0-50.0) L 06/18/18 08:30 Monocytes % 7.3 % (2.0-10.0) 06/18/18 08: Eosinophils % 5.9 % (0.0-5.0) H 06/18/18 08:30 Basophils % 1.1 % (0.0-2.0) 06/18/18 08:30 Sodium 140 mEq/L (136-145) 06/18/18 08:30 Potassium 3.9 mEq/L (3.5-5.1) 06/18/18 08:30 Chloride 108 mEq/L (98-107) H 06/18/18 08:30 Carbon Dioxide 25.8 mEq/L (21.0-31.0) 06/18/18 08:30 Anion Gap 10.1 (7.0-16.0) 06/18/18 08:30 BUN 24 mg/dL (7-25) 06/18/18 08:30 Creatinine 1.2 mg/dL (0.7-1.3) 06/18/18 08:30 Est GFR ( Amer) TNP 06/18/18 08:30 Est GFR (Non-Af Amer) TNP 06/18/18 08:30 BUN/Creatinine Ratio 20.0 06/18/18 08:30 Glucose 96 mg/dL (70-105) 06/18/18 08:30 POC Glucose 121 MG/DL (70 - 105) H 06/18/18 09:44 Calcium 8.6 mg/dL (8.6-10.3) 06/18/18 08:30 - Physical Exam Vitals and I&O: Vital Signs Temp 96.2 F 06/18/18 12:26 Pulse 71 06/18/18 12:26 Resp 18 06/18/18 12:26 BP 138/87 06/18/18 12:26 Pulse Ox 99 06/18/18 11:13 Intake & Output 06/17/18 06/18/18 06/18/18 18:59 06:59 18:59 Intake Total 1540 1027.5 440 Output Total 780 800 800 Balance 760 227.5 -360 Weight (lbs) 81.647 kg 79.379 kg 79.379 kg Intake: Intake, IV Amount 890 927.5 Piperacillin Sodium/ 50 100 Tazobact 3.375 gm In Sodium Chloride 0.9% 50 ml @ 100 mls/hr IV Q8HR [facility] Rx#:[id number] Sodium Chloride 0.9% 1, 840 827.5 000 ml @ 75 mls/hr IV . [id number] [facility] Rx#:[id number] Oral 650 100 440 Output: Urine 780 800 800 Other: # Voids 3 # Bowel Movements 1 1 0 Weight Source Bedscale Bedscale Bedscale General: no acute distress, well developed, well nourished HEENT: atraumatic, normocephalic, PERRLA, EOMI Neck: supple, no thyromegaly, no lymphadenopathy Cardiovascular: S1S2, regular Lungs: clear to auscultation bilaterally, clear to percussion Abdomen: soft, no tender, no distended Extremities: no cyanosis, no clubbing, no edema Skin: intact, rash Infectious Disease Assmt/Plan - Assessment Assessment: 1. UTI Pseudomonas. 2. Psychosis. - Plan Plan: CPm. zosyn for total
== END 2018-06-18 14:09 | DRG 690 ==
LOC: MSI 15:00
PROVIDERS: ADMIT Internal Medicine; ATTEND Internal Medicine
DX: N39.0 Urinary tract infection, site not specified (principal); B96.5 Pseudomonas (aeruginosa) (mallei) (pseudomallei) as the cause of diseases classified elsewhere; F29 Unspecified psychosis not due to a substance or known physiological condition; M19.90 Unspecified osteoarthritis, unspecified site; E11.9 Type 2 diabetes mellitus without complications; E78.5 Hyperlipidemia, unspecified; I48.91 Unspecified atrial fibrillation; F32.9 Major depressive disorder, single episode, unspecified; I10 Essential (primary) hypertension; Z79.899 Other long term (current) drug therapy
CPT/HCPCS: 36415-UA; 80048-TC; 82948-90; 85025-TC; J1815; J2543; J7030; Z7610

== ENCOUNTER 2019-01-08 20:11 | Inpatient (IN) | payer MEDICARE, MEDICAID ==
[2019-01-08 20:53] LABS: % BASOPHILS 0.1 % (0.0-2.0); % EOSINOPHILS 4.7 % (0.0-5.0); % LYMPHOCYTES 16.5 % (20.0-50.0); % MONOCYTES 6.2 % (2.0-10.0); % NEUTROPHILS 72.5 % (40.0-80.0); EOSINOPHILE ABSOLUTE 0.4 Th/cmm (0.1-0.4); LYMPHOCYTE ABSOLUTE 1.5 Th/cmm (1.5-3.0); MEAN CELL VOLUME 89.8 fl (80-99); MEAN CORPUSCULAR HEMOGLOBIN 29.3 pg (27.0-31.0); MEAN CORPUSCULAR HGB CONC 32.6 pg (28.0-36.0); MEAN PLATELET VOLUME 8.6 fl; MONOCYTE ABSOLUTE 0.6 Th/cmm (0.3-1.0); NEUTROPHILE ABSOLUTE 6.4 Th/cmm (1.8-8.0); PLATELET COUNT 237 Th/cmm (150-400); RED BLOOD COUNT 5.13 Mil/cmm (3.80-5.80); RED CELL DISTRIBUTION WIDTH 13.5 % (11.5-20.0); WHITE BLOOD COUNT 8.9 Th/cmm (4.8-10.8)
[2019-01-08 21:07] LABS: ALB/GLOB RATIO 1.1 (1.0-1.8); ALBUMIN 3.8 gm/dL (4.2-5.5); ALKALINE PHOSPHATASE 145 U/L (34-104); ANION GAP 11.2 (7.0-16.0); BILIRUBIN,TOTAL 0.3 mg/dL (0.3-1.0); BUN - UREA NITROGEN 31 mg/dL (7-25); CALCIUM SERUM 9.4 mg/dL (8.6-10.3); CARBON DIOXIDE 26.7 mEq/L (21.0-31.0); CHLORIDE 101 mEq/L (98-107); CREATININE - SERUM 1.2 mg/dL (0.7-1.3); GLUCOSE 212 mg/dL (70-105); POTASSIUM SERUM 3.9 mEq/L (3.5-5.1); SGOT 25 U/L (13-39); SGPT/ALT 30 U/L (7-52); SODIUM SERUM 135 mEq/L (136-145); TOTAL PROTEIN,SERUM 7.3 gm/dL (6.0-8.3)
[2019-01-08 22:47] LABS: URINE SOURCE MIDSTREAM
[2019-01-08 22:50] LABS: URINE BILIRUBIN NEGATIVE (NEGATIVE); URINE BLOOD TRACE (NEGATIVE); URINE GLUCOSE (UA) 100 mg/dL (NEGATIVE); URINE KETONE NEGATIVE (NEGATIVE); URINE LEUKOCYTE ESTERASE MODERATE (NEGATIVE); URINE MICROSCOPIC INDICATED? YES; URINE NITRATE NEGATIVE (NEGATIVE); URINE PH 5.5 (4.6 - 8.0); URINE PROTEIN NEGATIVE (NEGATIVE); URINE UROBILINOGEN 0.2 E.U./dL (0.2 - 1.0)
[2019-01-08 22:52] LABS: URINE CLARITY CLEAR (CLEAR); URINE COLOR YELLOW
[2019-01-08 22:55] LABS: URINE BACTERIA FEW /hpf (NONE SEEN); URINE EPITHELIAL CELLS OCCASIONAL /lpf (FEW)
[2019-01-08] MEDS ORDERED: Sodium Chloride 0.9% 1,000 ML IV ONE (23:07)
[2019-01-08] MEDS ORDERED: cefTRIAXone 1 GM in Sodium Chloride 0.9% 50 ML IV ONE (23:07)
--- NOTE | 2019-01-08 23:09 | ED Physician Chart ---
ED Chief Complaint/HPI - Patient Information Date Seen:: 01/08/19 Time Seen:: 23:08 Chief Complaint:: Depression History of Present Illness:: 78 yo male with history of COPD, atrial fibrillation, generalized weakness and depression, was brought from SNF to ER for evaluation of increasing depression and self isolation. Allergies:: Allergies Allergy/AdvReac Type Severity Reaction Status Date / Time No Known Allergies Allergy Verified 06/12/18 16:51 Vitals:: Vital Signs - 8 hr 01/08/19 01/08/19 20:20 22:31 Temp 98.8 F HR 107 98 RR 19 16 BP 153/90 139/79 O2 Sat % 97 98 ED Review of Systems - Review of Systems General/Constitutional: No fever, No chills Skin: Skin lesions Head: No headache Eyes: No pain ENT: No nasal drainage Neck: No neck pain Cardio Vascular: No chest pain Pulmonary: No SOB GI: No nausea, No vomiting G/U: No hematuria Musculoskeletal: No bone or joint pain Psychiatric: Depression Neurological: No focal symptoms ED Past Medical History - Past Medical History Past Medical History: Asthma/COPD, Other (AFIB, GENERALIZED WEAKNESS) Social History: Non Smoker, No Alcohol, No Drug Use Psychiatricy History: Depression Family Medical History - Family Member Mother History Unknown: Yes Ethnicity: Unknown Living Status: Unknown ED Physical Exam - Physical Examination General/Constitutional: Awake, Alert Other Gen/Cons comments:: plain affect Head: Atraumatic Eyes: PERRL, EOMI Other Skin comments:: multiple linear skin lesions ENMT: Nasal exam nl Neck: No nuchal rigidity Other Respiratory comments:: coarse breath sound equal Cardio Vascular: No murmur, gallop, rubs, NL S1 S2 GI: No tenderness/rebounding/guarding Extremities: normal strength in all extremities Neuro/Psych: No focal deficits ED Labs/Radiology/EKG Results - Lab Results Results: Laboratory Tests 01/08/19 01/08/19 01/08/19 20:48 20:48 20:48 WBC 8.9 RBC 5.13 Hgb 15.0 Hct 46.0 MCV 89.8 MCH 29.3 MCHC Differential 32.6 RDW 13.5 Plt Count 237 MPV 8.6 Neutrophils % 72.5 Lymphocytes % 16.5 L Monocytes % 6.2 Eosinophils % 4.7 Basophils % 0.1 Sodium 135 L Potassium 3.9 Chloride 101 Carbon Dioxide 26.7 Anion Gap 11.2 BUN 31 H Creatinine 1.2 Est GFR ( Amer) TNP Est GFR (Non-Af Amer) TNP BUN/Creatinine Ratio 25.8 Glucose 212 H Calcium 9.4 Total Bilirubin 0.3 AST 25 ALT 30 Alkaline Phosphatase 145 H Troponin I B-Natriuretic Peptide 28.9 Total Protein 7.3 Albumin 3.8 L Globulin 3.5 Albumin/Globulin Ratio 1.1 TSH Urine Source Urine Color Urine Clarity Urine pH Ur Specific [place] Urine Protein Urine Glucose (UA) Urine Ketones Urine Blood Urine Nitrate Urine Bilirubin Urine Urobilinogen Ur Leukocyte Esterase Urine RBC Urine WBC Ur Epithelial Cells Urine Bacteria 01/08/19 01/08/19 01/08/19 20:48 20:48 22:20 WBC RBC Hgb Hct MCV MCH MCHC Differential RDW Plt Count MPV Neutrophils % Lymphocytes % Monocytes % Eosinophils % Basophils % Sodium Potassium Chloride Carbon Dioxide Anion Gap BUN Creatinine Est GFR ( Amer) Est GFR (Non-Af Amer) BUN/Creatinine Ratio Glucose Calcium Total Bilirubin AST ALT Alkaline Phosphatase Troponin I < 0.01 L B-Natriuretic Peptide Total Protein Albumin Globulin Albumin/Globulin Ratio TSH 2.82 Urine Source [place] Urine Color YELLOW Urine Clarity CLEAR Urine pH 5.5 Ur Specific [place] 1.015 Urine Protein NEGATIVE Urine Glucose (UA) 100 H Urine Ketones NEGATIVE Urine Blood TRACE Urine Nitrate NEGATIVE Urine Bilirubin NEGATIVE Urine Urobilinogen 0.2 Ur Leukocyte Esterase MODERATE H Urine RBC 2-5 H Urine WBC 6-10 Ur Epithelial Cells OCCASIONAL Urine Bacteria FEW - Radiology Results Results: CXR: no focal consolidation ED Assessment - Assessment General Assessment: Urinary tract infection Dehydration COPD Atrial fibrillation Generalized weakness Depression Psychosis Assessment/Comments:: CBC, CMP, Trop, BNP, PT/PTT, UA CXR, EKG Rocephin 1g IV NS 1L IV bolus Admit to geropsych unit for further evaluation and management ED Septic Shock - . Is Septic Shock (SBP<90, OR Lactate>4 mmol\L) present?: No - <6hrs of presentation: Vital Signs: Vital Signs - 8 hr 01/08/19 01/08/19 20:20 22:31 Temp 98.8 F HR 107 98 RR 19 16 BP 153/90 139/79 O2 Sat % 97 98 ED Reassessment (Disposition) - Reassessment Reassessment Condition:: Improved - Patient Disposition Discharge/Transfer:: Eduar w/in this hosp Admitting Medical Physician:: Rory Troncoso Admitting Psych Physician:: Jair Galeana
[2019-01-09] MEDS ORDERED: Magnesium Hydroxide (MOM) 30 mL UDC PO PRN (01:01)
[2019-01-09 01:11] VITALS: BP 130/67
[2019-01-09 06:48] LABS: CHOLESTEROL 106 mg/dL (<200); HDL -HIGH DENSITY LIPOPROTEIN 33 mg/dL (23-92); TRIGLYCERIDES 115 mg/dL (<150)
--- NOTE | 2019-01-09 08:46 | Diagnostic Imaging Report ---
CHEST X-RAY: AP view INDICATION: Shortness of breath COMPARISON: None FINDINGS: Exam is limited due to positioning and rotation. Skin fold is seen along the right hemithorax. Increasing partial lung markings are seen with no focal consolidation or effusions. Heart size is normal. Degenerative changes of the spine are noted. IMPRESSION: Increased interstitial lung markings nonspecific and probably due to chronic changes. No focal consolidation or evidence of kaylyn CHF.
[2019-01-09] MEDS ORDERED: Non-Formulary Item 1 EA (Amino Acids/Protein Hydrolys [Pro-Stat Sugar Free Liquid] 30 ML) PO SCH (09:00)
[2019-01-09] MEDS: Multivitamin w/ Minerals Tab PO SCH (10:00)
[2019-01-09] MEDS: Ferrous Sulfate 325 MG TAB PO SCH (10:00)
[2019-01-09] MEDS: INSULIN LISPRO 100 UNIT/ML VIAL SUBQ SCH ×2 (12:00→17:30)
--- NOTE | 2019-01-09 13:52 | History & Physical ---
ADMIT DATE: 01/09/2019 CHIEF COMPLAINT: Medical evaluation and clearance for the patient being admitted to inpatient unit. HISTORY OF PRESENT ILLNESS: This is a 78-year-old male with history of hypertension, diabetes, CHF, hypercholesterolemia, dementia, paroxysmal atrial fibrillation, admitted from nursing facility under Dr. Galeana. The patient is a poor historian. Denies chest pain or shortness of breath. PAST MEDICAL HISTORY: As per history of present illness. PAST SURGICAL HISTORY: Unable to obtain from the patient. ALLERGIES: No known drug allergies. MEDICATIONS: [place], magnesium, Reglan, Tylenol, amiodarone, vitamin D3, famotidine, iron, Namenda, multivitamins, nitroglycerin, and simvastatin. FAMILY HISTORY: Noncontributory. SOCIAL HISTORY: The patient is a [facility] patient, requiring 24-hour total care. REVIEW OF SYSTEMS: This is limited secondary to the patient's current mental state. We will try to obtain more detailed review of system at a later date by talking to family members, ____ [phone]. There is another lithography contact worker, Jennifer Leo at [phone] as well as nursing staff at the facility [facility], #[phone]. PHYSICAL EXAMINATION: VITAL SIGNS: Blood pressure 130/67, respirations 18, pulse 89, temperature 98.5. GENERAL: Elderly male, appears chronically ill. NECK: Supple. No mass. LUNGS: Equal breath sounds, few rhonchi. HEART: Regular rate and rhythm, 2/6 systolic ejection murmur. ABDOMEN: Soft, globular. EXTREMITIES: Positive excoriation, contractures, multiple excoriations throughout the torso. LABORATORY DATA: WBC 8, hemoglobin 15, platelets 237. Sodium 135, potassium 3.9, BUN 31, creatinine 1.2. Blood sugar ____, ____ 145. Troponin negative x 1. Albumin 3.8. ASSESSMENT AND PLAN: 1. Hypertension. 2. Diabetes. 3. History of congestive heart failure, compensated. 4. Hypercholesterolemia. 5. Dementia. 6. Osteoarthritis. 7. Paroxysmal atrial fibrillation. 8. Hyponatremia. 9. Renal insufficiency. PLAN: Continue the patient on oxygen and bronchodilator treatment. Continue on insulin sliding scale. ____ amiodarone. We will check the patient's thyroid panel. Continue statin. Continue with current care. We will empirically treat the patient with LMA x 1 for the rashes. Wound care is following the patient as well. We will continue to follow. [facility]# [id number]
[2019-01-09] MEDS ORDERED: Dextrose 50% 50 mL Abboject IVP PRN (17:57)
[2019-01-09] MEDS ORDERED: GLUCAGON HCl 1 MG KIT IM PRN (17:57)
[2019-01-09] MEDS: Escitalopram Oxalate 5 mg Tab PO SCH (20:49)
[2019-01-09] MEDS: INSULIN LISPRO SLIDING SCALE 100 UNITS/ML UNIT SUBQ SCH (20:53)
[2019-01-10] MEDS: INSULIN LISPRO SLIDING SCALE 100 UNITS/ML UNIT SUBQ SCH ×4 (06:32→21:09)
[2019-01-10 06:48] LABS: TISSUE KOH / SCABIES NEGATIVE FOR SCABIES
[2019-01-10] MEDS: Multivitamin w/ Minerals Tab PO SCH (09:04)
[2019-01-10] MEDS: Ferrous Sulfate 325 MG TAB PO SCH (09:04)
--- NOTE | 2019-01-10 11:45 | Internal Medicine Prog Note ---
Internal Medicine Subjective - Subjective Patient seen and examined:: with staff, chart reviewed Patient is:: awake, verbal, interactive, agitated, confused Per staff patient has:: no adverse event, no episodes of fall, tolerating meds Internal Medicine Objective - Results Result Diagrams: 01/08/19 20:48 01/08/19 20:48 Recent Labs: Laboratory Last Values WBC 8.9 Th/cmm (4.8-10.8) 01/08/19 20:48 RBC 5.13 Mil/cmm (3.80-5.80) 01/08/19 20:48 Hgb 15.0 gm/dL (12-16) 01/08/19 20:48 Hct 46.0 % (41.0-60) 01/08/19 20:48 MCV 89.8 fl (80-99) 01/08/19 20:48 MCH 29.3 pg (27.0-31.0) 01/08/19 20:48 MCHC Differential 32.6 pg (28.0-36.0) 01/08/19 20:48 RDW 13.5 % (11.5-20.0) 01/08/19 20:48 Plt Count 237 Th/cmm (150-400) 01/08/19 20:48 MPV 8.6 fl 01/08/19 20:48 Neutrophils % 72.5 % (40.0-80.0) 01/08/19 20:48 Lymphocytes % 16.5 % (20.0-50.0) L 01/08/19 20:48 Monocytes % 6.2 % (2.0-10.0) 01/08/19 20:48 Eosinophils % 4.7 % (0.0-5.0) 01/08/19 20:48 Basophils % 0.1 % (0.0-2.0) 01/08/19 20:48 Sodium 135 mEq/L (136-145) L 01/08/19 20:48 Potassium 3.9 mEq/L (3.5-5.1) 01/08/19 20:48 Chloride 101 mEq/L (98-107) 01/08/19 20:48 Carbon Dioxide 26.7 mEq/L (21.0-31.0) 01/08/19 20:48 Anion Gap 11.2 (7.0-16.0) 01/08/19 20:48 BUN 31 mg/dL (7-25) H 01/08/19 20:48 Creatinine 1.2 mg/dL (0.7-1.3) 01/08/19 20:48 Est GFR ( Amer) TNP 01/08/19 20:48 Est GFR (Non-Af Amer) TNP 01/08/19 20:48 BUN/Creatinine Ratio 25.8 01/08/19 20:48 Glucose 212 mg/dL (70-105) H 01/08/19 20:48 POC Glucose 108 MG/DL (70 - 105) H 01/10/19 05:54 Calcium 9.4 mg/dL (8.6-10.3) 01/08/19 20:48 Total Bilirubin 0.3 mg/dL (0.3-1.0) 01/08/19 20:48 AST 25 U/L (13-39) 01/08/19 20:48 ALT 30 U/L (7-52) 01/08/19 20:48 Alkaline Phosphatase 145 U/L (34-104) H 01/08/19 20:48 Troponin I < 0.01 ng/mL (0.01-0.05) L 01/08/19 20:48 B-Natriuretic Peptide 28.9 pg/mL (5.0-100.0) 01/08/19 20:48 Total Protein 7.3 gm/dL (6.0-8.3) 01/08/19 20:48 Albumin 3.8 gm/dL (4.2-5.5) L 01/08/19 20:48 Globulin 3.5 gm/dL 01/08/19 20:48 Albumin/Globulin Ratio 1.1 (1.0-1.8) 01/08/19 20:48 Triglycerides 115 mg/dL (<150) 01/08/19 20:48 Cholesterol 106 mg/dL (<200) 01/08/19 20:48 LDL Cholesterol Direct 49 mg/dL (75-193) L 01/08/19 20:48 HDL Cholesterol 33 mg/dL (23-92) 01/08/19 20:48 TSH 2.82 uIU/ml (0.34-5.60) 01/08/19 20:48 Urine Source MIDSTREAM 01/08/19 22:20 Urine Color YELLOW 01/08/19 22:20 Urine Clarity CLEAR (CLEAR) 01/08/19 22:20 Urine pH 5.5 (4.6 - 8.0) 01/08/19 22:20 Ur Specific [place] 1.015 (1.005-1.030) 01/08/19 22:20 Urine Protein NEGATIVE mg/dL (NEGATIVE) 01/08/19 22:20 Urine Glucose (UA) 100 mg/dL (NEGATIVE) H 01/08/19 22:20 Urine Ketones NEGATIVE mg/dL (NEGATIVE) 01/08/19 22:20 Urine Blood TRACE (NEGATIVE) 01/08/19 22:20 Urine Nitrate NEGATIVE (NEGATIVE) 01/08/19 22:20 Urine Bilirubin NEGATIVE (NEGATIVE) 01/08/19 22:20 Urine Urobilinogen 0.2 E.U./dL (0.2 - 1.0) 01/08/19 22:20 Ur Leukocyte Esterase MODERATE (NEGATIVE) H 01/08/19 22:20 Urine RBC 2-5 /hpf (0-5) H 01/08/19 22:20 Urine WBC 6-10 /hpf (0-5) 01/08/19 22:20 Ur Epithelial Cells OCCASIONAL /lpf (FEW) 01/08/19 22:20 Urine Bacteria FEW /hpf (NONE SEEN) 01/08/19 22:20 Scabies Examination NEGATIVE FOR SCABIES 01/09/19 13:06 - Physical Exam Vitals and I&O: Vital Signs Temp 98.6 F 01/10/19 05:45 Pulse 75 01/10/19 09:03 Resp 20 01/10/19 05:45 BP 122/59 01/10/19 05:45 Pulse Ox 96 01/10/19 05:45 Intake & Output 01/09/19 01/10/19 01/10/19 18:59 06:59 18:59 Intake Total 120 Balance 120 Weight (lbs) 79.379 kg Intake: Oral 120 Other: # Voids 5 3 # Bowel Movements 1 1 Active Medications: Current Medications Acetaminophen (Tylenol) 650 mg PO Q4HR PRN PRN Reason: Pain (Mild) Stop: 03/10/19 01:00 Amiodarone HCl (Cordarone) 200 mg PO DAILY [facility] Stop: 03/10/19 08:59 Last Admin: 01/10/19 09:03 Dose: 200 mg Cholecalciferol (Vitamin D3) 1,000 iu PO DAILY [facility] Stop: 03/10/19 08:59 Last Admin: 01/10/19 09:04 Dose: 1,000 iu Dextrose (D50w) 50 ml IVP PRN PRN PRN Reason: Blood Glucose less than 70 Stop: 03/10/19 17:56 Dextrose (Glutose 40%) 18.75 gm PO PRN PRN PRN Reason: Blood Glucose less than 70 Stop: 03/10/19 17:56 Escitalopram Oxalate (Lexapro) 5 mg PO HS [facility]; Protocol Stop: 03/10/19 20:59 Last Admin: 01/09/19 20:49 Dose: 5 mg Famotidine (Pepcid) 20 mg PO DAILY [facility] Stop: 03/10/19 08:59 Last Admin: 01/10/19 09:04 Dose: 20 mg Ferrous Sulfate (Iron) 325 mg PO DAILY [facility] Stop: 03/10/19 08:59 Last Admin: 01/10/19 09:04 Dose: 325 mg Glucagon (Glucagen) 1 mg IM PRN PRN PRN Reason: Blood Glucose less than 70 Stop: 03/10/19 17:56 Insulin Human Lispro (Humalog Insulin Sliding Scale) 0 units SUBQ ACHS [facility]; Protocol Stop: 03/10/19 20:59 Last Admin: 01/10/19 06:32 Dose: Not Given Lorazepam (Ativan) 0.5 mg PO Q4HR PRN; Protocol PRN Reason: Anxiety Stop: 02/08/19 00:54 Magnesium Hydroxide (Milk Of Magnesia) 30 ml PO HS PRN PRN Reason: Constipation Stop: 03/10/19 01:00 Memantine (Namenda) 10 mg PO BID [facility] Stop: 03/10/19 08:59 Last Admin: 01/10/19 09:04 Dose: 10 mg Nitroglycerin (Nitrostat) 0.4 mg SL Q5MIN PRN PRN Reason: Chest Pain Stop: 03/10/19 01:00 Simvastatin (Zocor) 20 mg PO HS [facility]; Protocol Stop: 03/10/19 20:59 Last Admin: 01/09/19 20:49 Dose: 20 mg Zolpidem Tartrate (Ambien) 5 mg PO HS PRN PRN Reason: Insomnia Stop: 03/10/19 01:00 General: demented HEENT: PERRLA Neck: Supple, No JVD, No thyromegaly Lungs: CTAB Cardiovascular: RRR, Normal S1, Normal S2, with murmur Abdomen: soft, globular, positive bowel sound Extremities: excoriation, contracture Neurological: no change, disorganized Internal Medicine Assmt/Plan - Assessment Assessment: ASSESSMENT AND PLAN: 1. Hypertension. 2. Diabetes. 3. History of congestive heart failure, compensated. 4. Hypercholesterolemia. 5. Dementia. 6. Osteoarthritis. 7. Paroxysmal atrial fibrillation. 8. Hyponatremia. 9. Renal insufficiency. - Plan Plan: PLAN: PLAN: Continue the patient on oxygen and bronchodilator treatment. Continue on insulin sliding scale. __on__ amiodarone. We will check the patient's thyroid panel. Continue statin. Continue with current care. We will empirically treat the patient with elimite x 1 for the rashes. Wound care is following the patient as well. We will continue to follow. Nutritional Asmnt/Malnutr-PDOC - Dietary Evaluation Malnutrition Findings (Please click <Entered> for more info): Nutritional Asmnt/Malnutrition Start: 01/09/19 15: 57 Text: Status: Complete Freq: Protocol: Document 01/09/19 16:08 LCHENG (Rec: 01/09/19 16:14 [email or web address]) Nutritional Asmnt/Malnutrition Patient General Information Nutritional Screening High Risk Diagnosis psychosis Pertinent Medical Hx/Surgical Hx per nurse note 01/09: atrial fibrillation,UTI,DM,HTN,COPD, osteoatrhritis and hyperlipidemia Subjective Information Consult received for robert sccore 13, general macular red rash. pt seen lying in bed, awake and confused, not able to answer questions at this time. Per EMR, PO intake 100%. Glucose 212 at admission noted. BROOKE valera stated ordered liquid amino acid in medication but it is carried in dietary. Current Diet Order/ Nutrition Support [facility] soft Na 2gm Pertinent Medications vit D3, pepcid, iron, humalog Pertinent Labs 01/09 POC 91-120 01/08 glucose 212, BUN 31, Na 135, alb 3.8 Nutritional Hx/Data Height 1.75 m Height (Calculated Centimeters) 175.3 Current Weight (lbs) 79.379 kg Weight (Calculated Kilograms) 79.4 Weight (Calculated Grams) 10074.7 [place] Body Weight 160 Body Mass Index (BMI) 25.8 Weight Status Overweight GI Symptoms GI Symptoms None Last BM not indicated Difficult in: None Skin Integrity/Comment: rash Current %PO Good (75-100%) Estimated Nutritional Goals BEE in Kcals: Using Current wt Calories/Kcals/Kg 23-27 Kcals Calculated 2305-2255 Protein: Using Current wt Protein g/k Protein Calculated 80 Fluid: ml 1840-2160ml (1ml/kcal) Nutritional Problem 1. Problem Problem altered nutrition related labs Etiology hyperglycemia Signs/Symptoms: glucose 212 at admission Malnutrition Alert Is there a minimum of two criteria No selected? Query Text:Check all the applicable criteria. A minimum of two criteria are recommended for diagnosis of either severe or non-severe malnutrition. Malnutrition Related to Morbid Obesity Malnutrition related to morbid obesity No Intervention/Recommendation Comments 1. Continue with current diet as ordered. Will continue monitor glucose level. Consider adding CCHO diet if glucose continue elevated. 2. Monitor PO intake, wt, labs and skin integrity 3. F/U as high risk in 2-3 days Expected Outcomes/Goals Expected Outcomes/Goals 1. PO intake to meet at least 75% of nutritional needs. 2. Wt stability, skin to remain intact, labs to approach WNL.
--- NOTE | 2019-01-10 17:50 | Psychiatric Evaluation ---
DATE OF SERVICE: PSYCHIATRIC INITIAL EVALUATION AND MENTAL STATUS EXAM PATIENT'S AGE: 78. SEX: Male. PHYSICIAN: Dr. Galeana. CHIEF COMPLAINT: Severe depression. HISTORY OF PRESENT ILLNESS: The patient is a 78-year-old male, who resides in [facility]. The patient has been severely depressed and withdrawn lately and has been feeling hopeless and helpless. The patient also has minimal interaction with the staff in spite of encouraging him to socialize. The patient also has been having difficulty socializing with others and interacting with others or expressing himself or his feelings. He also does not want to cooperate with the staff because of his severe level of depression. The patient has been feeling hopeless and helpless, but denies any thoughts of suicide. PAST PSYCHIATRIC HISTORY: The patient has history of depression. PAST MEDICAL HISTORY: The patient has history of diabetes mellitus, hypertension, COPD, and urinary tract infection. He also has history of hyperlipidemia. SOCIAL HISTORY: The patient lives in [facility]. No known alcohol or drug use. ALLERGIES: No known allergies. MENTAL STATUS EXAMINATION: The patient appears slightly older than his stated age. Sad affect. Depressed mood. Thought processes are mainly goal directed, but with poverty of speech. The patient denies hallucinations or delusions and denies any thoughts of suicide or homicide. The patient is alert and oriented to situation, but not to place or person. Impaired immediate and recent memory, but intact remote memories. Fair insight and judgment. ASSESSMENT: PRIMARY DIAGNOSIS: Depressive mood disorder, unspecified, without psychotic features. 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 MEDICAL DIAGNOSES: 1. Generalized weakness. 2. Chronic obstructive pulmonary disease. 3. Diabetes mellitus. 4. Hyperlipidemia. 5. Urinary tract infection. TREATMENT PLAN: The patient was started on Lexapro and we will adjust the dose. We will work on his ineffective coping and his severe level of depression. Also, we will adjust other psychotropic medications and monitor his medical problems because of his generalized weakness. ESTIMATED LENGTH OF STAY: 5-7 days. THE PATIENT'S STRENGTHS AND WEAKNESSES: The patient's strength is not clear at this time. Weakness is his ineffective coping and his severe level of depression. AFTER DISCHARGE PLAN: The patient will return to [facility] and outpatient treatment and followup to continue as an outpatient. CRITERIA FOR DISCHARGE: The patient will not be as depressed and will stabilize psychotropic medications and will establish outpatient treatment plans. [facility]# [id number]
--- NOTE | 2019-01-10 18:26 | Progress Notes ---
DATE: SUBJECTIVE: Chart was reviewed and the patient interviewed. Also discussed the patient's condition with the staff and reviewed records and labs. The patient continued to be severely depressed. The patient also is and interacting minimally with others. The patient also is still feeling hopeless and still wants to be left alone. Otherwise, the patient is cooperative and compliant with taking his medications with no side effects of medications. ASSESSMENT: The patient is still in a depressed mood. TREATMENT PLAN: Continue Lexapro 5 mg every day and will adjust the dose. Also, continue to work on ineffective coping and followup. JOB# [id number]
[2019-01-10] MEDS: Escitalopram Oxalate 5 mg Tab PO SCH (20:57)
[2019-01-11] MEDS: INSULIN LISPRO SLIDING SCALE 100 UNITS/ML UNIT SUBQ SCH ×4 (06:34→21:10)
--- NOTE | 2019-01-11 06:44 | Progress Notes ---
DATE: SUBJECTIVE: Chart reviewed and the patient interviewed. Also discussed the patient's condition with the staff and reviewed records and labs. The patient is still withdrawn and guarded and interacting minimally with others. The patient also is feeling hopeless and helpless. Also, the patient wants to be left alone most of the time and very passive. Otherwise, the patient is compliant with treatment. ASSESSMENT: The patient is still depressed. TREATMENT PLAN: The patient started yesterday on Lexapro 5 mg at bedtime. We will continue same dose. Also, continue to work on ineffective coping and on his hopeless feelings and continue to follow up. JOB# [id number]
[2019-01-11] MEDS: Ferrous Sulfate 325 MG TAB PO SCH (09:42)
[2019-01-11] MEDS: Multivitamin w/ Minerals Tab PO SCH (09:43)
--- NOTE | 2019-01-11 12:35 | Internal Medicine Prog Note ---
Internal Medicine Subjective - Subjective Patient seen and examined:: with staff, chart reviewed Patient is:: awake, verbal, interactive, agitated, confused Per staff patient has:: no adverse event, no episodes of fall, tolerating meds Internal Medicine Objective - Results Result Diagrams: 01/08/19 20:48 01/08/19 20:48 Recent Labs: Laboratory Last Values WBC 8.9 Th/cmm (4.8-10.8) 01/08/19 20:48 RBC 5.13 Mil/cmm (3.80-5.80) 01/08/19 20:48 Hgb 15.0 gm/dL (12-16) 01/08/19 20:48 Hct 46.0 % (41.0-60) 01/08/19 20:48 MCV 89.8 fl (80-99) 01/08/19 20:48 MCH 29.3 pg (27.0-31.0) 01/08/19 20:48 MCHC Differential 32.6 pg (28.0-36.0) 01/08/19 20:48 RDW 13.5 % (11.5-20.0) 01/08/19 20:48 Plt Count 237 Th/cmm (150-400) 01/08/19 20:48 MPV 8.6 fl 01/08/19 20:48 Neutrophils % 72.5 % (40.0-80.0) 01/08/19 20:48 Lymphocytes % 16.5 % (20.0-50.0) L 01/08/19 20:48 Monocytes % 6.2 % (2.0-10.0) 01/08/19 20:48 Eosinophils % 4.7 % (0.0-5.0) 01/08/19 20:48 Basophils % 0.1 % (0.0-2.0) 01/08/19 20:48 Sodium 135 mEq/L (136-145) L 01/08/19 20:48 Potassium 3.9 mEq/L (3.5-5.1) 01/08/19 20:48 Chloride 101 mEq/L (98-107) 01/08/19 20:48 Carbon Dioxide 26.7 mEq/L (21.0-31.0) 01/08/19 20:48 Anion Gap 11.2 (7.0-16.0) 01/08/19 20:48 BUN 31 mg/dL (7-25) H 01/08/19 20:48 Creatinine 1.2 mg/dL (0.7-1.3) 01/08/19 20:48 Est GFR ( Amer) TNP 01/08/19 20:48 Est GFR (Non-Af Amer) TNP 01/08/19 20:48 BUN/Creatinine Ratio 25.8 01/08/19 20:48 Glucose 212 mg/dL (70-105) H 01/08/19 20:48 POC Glucose 122 MG/DL (70 - 105) H 01/11/19 05:08 Calcium 9.4 mg/dL (8.6-10.3) 01/08/19 20:48 Total Bilirubin 0.3 mg/dL (0.3-1.0) 01/08/19 20:48 AST 25 U/L (13-39) 01/08/19 20:48 ALT 30 U/L (7-52) 01/08/19 20:48 Alkaline Phosphatase 145 U/L (34-104) H 01/08/19 20:48 Troponin I < 0.01 ng/mL (0.01-0.05) L 01/08/19 20:48 B-Natriuretic Peptide 28.9 pg/mL (5.0-100.0) 01/08/19 20:48 Total Protein 7.3 gm/dL (6.0-8.3) 01/08/19 20:48 Albumin 3.8 gm/dL (4.2-5.5) L 01/08/19 20:48 Globulin 3.5 gm/dL 01/08/19 20:48 Albumin/Globulin Ratio 1.1 (1.0-1.8) 01/08/19 20:48 Triglycerides 115 mg/dL (<150) 01/08/19 20:48 Cholesterol 106 mg/dL (<200) 01/08/19 20:48 LDL Cholesterol Direct 49 mg/dL (75-193) L 01/08/19 20:48 HDL Cholesterol 33 mg/dL (23-92) 01/08/19 20:48 TSH 2.82 uIU/ml (0.34-5.60) 01/08/19 20:48 Urine Source MIDSTREAM 01/08/19 22:20 Urine Color YELLOW 01/08/19 22:20 Urine Clarity CLEAR (CLEAR) 01/08/19 22:20 Urine pH 5.5 (4.6 - 8.0) 01/08/19 22:20 Ur Specific [place] 1.015 (1.005-1.030) 01/08/19 22:20 Urine Protein NEGATIVE mg/dL (NEGATIVE) 01/08/19 22:20 Urine Glucose (UA) 100 mg/dL (NEGATIVE) H 01/08/19 22:20 Urine Ketones NEGATIVE mg/dL (NEGATIVE) 01/08/19 22:20 Urine Blood TRACE (NEGATIVE) 01/08/19 22:20 Urine Nitrate NEGATIVE (NEGATIVE) 01/08/19 22:20 Urine Bilirubin NEGATIVE (NEGATIVE) 01/08/19 22:20 Urine Urobilinogen 0.2 E.U./dL (0.2 - 1.0) 01/08/19 22:20 Ur Leukocyte Esterase MODERATE (NEGATIVE) H 01/08/19 22:20 Urine RBC 2-5 /hpf (0-5) H 01/08/19 22:20 Urine WBC 6-10 /hpf (0-5) 01/08/19 22:20 Ur Epithelial Cells OCCASIONAL /lpf (FEW) 01/08/19 22:20 Urine Bacteria FEW /hpf (NONE SEEN) 01/08/19 22:20 Scabies Examination NEGATIVE FOR SCABIES 01/09/19 13:06 - Physical Exam Vitals and I&O: Vital Signs Temp 98 F 01/10/19 20:00 Pulse 77 01/11/19 09:43 Resp 20 01/11/19 08:00 BP 125/69 01/11/19 05:46 Pulse Ox 95 01/11/19 05:46 Intake & Output 01/10/19 01/11/19 01/11/19 18:59 06:59 18:59 Intake Total 480 Balance 480 Intake: Oral 480 Other: # Voids 4 2 # Bowel Movements 1 1 Stool Characteristics Soft Soft Active Medications: Current Medications Acetaminophen (Tylenol) 650 mg PO Q4HR PRN PRN Reason: Pain (Mild) Stop: 03/10/19 01:00 Amiodarone HCl (Cordarone) 200 mg PO DAILY [facility] Stop: 03/10/19 08:59 Last Admin: 01/11/19 09:43 Dose: 200 mg Cholecalciferol (Vitamin D3) 1,000 iu PO DAILY [facility] Stop: 03/10/19 08:59 Last Admin: 01/11/19 09:43 Dose: 1,000 iu Dextrose (D50w) 50 ml IVP PRN PRN PRN Reason: Blood Glucose less than 70 Stop: 03/10/19 17:56 Dextrose (Glutose 40%) 18.75 gm PO PRN PRN PRN Reason: Blood Glucose less than 70 Stop: 03/10/19 17:56 Escitalopram Oxalate (Lexapro) 5 mg PO HS [facility]; Protocol Stop: 03/10/19 20:59 Last Admin: 01/10/19 20:57 Dose: 5 mg Famotidine (Pepcid) 20 mg PO DAILY [facility] Stop: 03/10/19 08:59 Last Admin: 01/11/19 09:43 Dose: 20 mg Ferrous Sulfate (Iron) 325 mg PO DAILY [facility] Stop: 03/10/19 08:59 Last Admin: 01/11/19 09:42 Dose: 325 mg Glucagon (Glucagen) 1 mg IM PRN PRN PRN Reason: Blood Glucose less than 70 Stop: 03/10/19 17:56 Insulin Human Lispro (Humalog Insulin Sliding Scale) 0 units SUBQ ACHS [facility]; Protocol Stop: 03/10/19 20:59 Last Admin: 01/11/19 11:54 Dose: Not Given Lorazepam (Ativan) 0.5 mg PO Q4HR PRN; Protocol PRN Reason: Anxiety Stop: 02/08/19 00:54 Magnesium Hydroxide (Milk Of Magnesia) 30 ml PO HS PRN PRN Reason: Constipation Stop: 03/10/19 01:00 Memantine (Namenda) 10 mg PO BID [facility] Stop: 03/10/19 08:59 Last Admin: 01/11/19 09:42 Dose: 10 mg Nitroglycerin (Nitrostat) 0.4 mg SL Q5MIN PRN PRN Reason: Chest Pain Stop: 03/10/19 01:00 Simvastatin (Zocor) 20 mg PO HS [facility]; Protocol Stop: 03/10/19 20:59 Last Admin: 01/10/19 20:57 Dose: 20 mg Zolpidem Tartrate (Ambien) 5 mg PO HS PRN PRN Reason: Insomnia Stop: 03/10/19 01:00 General: demented HEENT: PERRLA Neck: Supple, No JVD, No thyromegaly Lungs: CTAB Cardiovascular: RRR, Normal S1, Normal S2, with murmur Abdomen: soft, globular, positive bowel sound Extremities: excoriation, contracture Neurological: no change, disorganized Internal Medicine Assmt/Plan - Assessment Assessment: ASSESSMENT AND PLAN: 1. Hypertension. 2. Diabetes. 3. History of congestive heart failure, compensated. 4. Hypercholesterolemia. 5. Dementia. 6. Osteoarthritis. 7. Paroxysmal atrial fibrillation. 8. Hyponatremia. 9. Renal insufficiency. - Plan Plan: PLAN: PLAN: Continue the patient on oxygen and bronchodilator treatment. Continue on insulin sliding scale. __on__ amiodarone. We will check the patient's thyroid panel. Continue statin. Continue with current care. We will empirically treat the patient with elimite x 1 for the rashes. Wound care is following the patient as well. We will continue to follow. Nutritional Asmnt/Malnutr-PDOC - Dietary Evaluation Malnutrition Findings (Please click <Entered> for more info): Nutritional Asmnt/Malnutrition Start: 01/09/19 15: 57 Text: Status: Complete Freq: Protocol: Document 01/09/19 16:08 LCHENG (Rec: 01/09/19 16:14 LCMARING [email or web address]) Nutritional Asmnt/Malnutrition Patient General Information Nutritional Screening High Risk Diagnosis psychosis Pertinent Medical Hx/Surgical Hx per nurse note 01/09: atrial fibrillation,UTI,DM,HTN,COPD, osteoatrhritis and hyperlipidemia Subjective Information Consult received for robert sccore 13, general macular red rash. pt seen lying in bed, awake and confused, not able to answer questions at this time. Per EMR, PO intake 100%. Glucose 212 at admission noted. BROOKE valera stated ordered liquid amino acid in medication but it is carried in dietary. Current Diet Order/ Nutrition Support [facility] soft Na 2gm Pertinent Medications vit D3, pepcid, iron, humalog Pertinent Labs 01/09 POC 91-120 01/08 glucose 212, BUN 31, Na 135, alb 3.8 Nutritional Hx/Data Height 1.75 m Height (Calculated Centimeters) 175.3 Current Weight (lbs) 79.379 kg Weight (Calculated Kilograms) 79.4 Weight (Calculated Grams) 12916.7 [place] Body Weight 160 Body Mass Index (BMI) 25.8 Weight Status Overweight GI Symptoms GI Symptoms None Last BM not indicated Difficult in: None Skin Integrity/Comment: rash Current %PO Good (75-100%) Estimated Nutritional Goals BEE in Kcals: Using Current wt Calories/Kcals/Kg 23-27 Kcals Calculated 0299-9355 Protein: Using Current wt Protein g/k Protein Calculated 80 Fluid: ml 1840-2160ml (1ml/kcal) Nutritional Problem 1. Problem Problem altered nutrition related labs Etiology hyperglycemia Signs/Symptoms: glucose 212 at admission Malnutrition Alert Is there a minimum of two criteria No selected? Query Text:Check all the applicable criteria. A minimum of two criteria are recommended for diagnosis of either severe or non-severe malnutrition. Malnutrition Related to Morbid Obesity Malnutrition related to morbid obesity No Intervention/Recommendation Comments 1. Continue with current diet as ordered. Will continue monitor glucose level. Consider adding CCHO diet if glucose continue elevated. 2. Monitor PO intake, wt, labs and skin integrity 3. F/U as high risk in 2-3 days Expected Outcomes/Goals Expected Outcomes/Goals 1. PO intake to meet at least 75% of nutritional needs. 2. Wt stability, skin to remain intact, labs to approach WNL.
[2019-01-11] MEDS: Escitalopram Oxalate 5 mg Tab PO SCH (20:46)
[2019-01-12] MEDS: INSULIN LISPRO SLIDING SCALE 100 UNITS/ML UNIT SUBQ SCH ×4 (06:29→20:54)
[2019-01-12] MEDS: Multivitamin w/ Minerals Tab PO SCH (09:00)
[2019-01-12] MEDS: Ferrous Sulfate 325 MG TAB PO SCH (09:00)
--- NOTE | 2019-01-12 19:50 | Progress Notes ---
DATE: 01/12/2019 DATE OF SERVICE: 01/12/2019 SUBJECTIVE: Chart was reviewed and the patient interviewed. Also discussed the patient's condition with the staff and reviewed records and labs. The patient continued to be confused and in a depressed mood. The patient also is still guarded and withdrawn with minimal interaction with others. The patient also has flat affect. Otherwise, the patient is compliant with taking medications with no side effects of medications. ASSESSMENT: The patient is still depressed and confused. TREATMENT PLAN: Continue monitoring behavior and condition closely and continue adjusting medications and follow up. JOB# [id number]
--- NOTE | 2019-01-12 20:39 | Internal Medicine Prog Note ---
Internal Medicine Subjective - Subjective Patient seen and examined:: with staff, chart reviewed Patient is:: awake, verbal, interactive, agitated, confused Per staff patient has:: no adverse event, no episodes of fall, tolerating meds Internal Medicine Objective - Results Result Diagrams: 01/08/19 20:48 01/08/19 20:48 Recent Labs: Laboratory Last Values WBC 8.9 Th/cmm (4.8-10.8) 01/08/19 20:48 RBC 5.13 Mil/cmm (3.80-5.80) 01/08/19 20:48 Hgb 15.0 gm/dL (12-16) 01/08/19 20:48 Hct 46.0 % (41.0-60) 01/08/19 20:48 MCV 89.8 fl (80-99) 01/08/19 20:48 MCH 29.3 pg (27.0-31.0) 01/08/19 20:48 MCHC Differential 32.6 pg (28.0-36.0) 01/08/19 20:48 RDW 13.5 % (11.5-20.0) 01/08/19 20:48 Plt Count 237 Th/cmm (150-400) 01/08/19 20:48 MPV 8.6 fl 01/08/19 20:48 Neutrophils % 72.5 % (40.0-80.0) 01/08/19 20:48 Lymphocytes % 16.5 % (20.0-50.0) L 01/08/19 20:48 Monocytes % 6.2 % (2.0-10.0) 01/08/19 20:48 Eosinophils % 4.7 % (0.0-5.0) 01/08/19 20:48 Basophils % 0.1 % (0.0-2.0) 01/08/19 20:48 Sodium 135 mEq/L (136-145) L 01/08/19 20:48 Potassium 3.9 mEq/L (3.5-5.1) 01/08/19 20:48 Chloride 101 mEq/L (98-107) 01/08/19 20:48 Carbon Dioxide 26.7 mEq/L (21.0-31.0) 01/08/19 20:48 Anion Gap 11.2 (7.0-16.0) 01/08/19 20:48 BUN 31 mg/dL (7-25) H 01/08/19 20:48 Creatinine 1.2 mg/dL (0.7-1.3) 01/08/19 20:48 Est GFR ( Amer) TNP 01/08/19 20:48 Est GFR (Non-Af Amer) TNP 01/08/19 20:48 BUN/Creatinine Ratio 25.8 01/08/19 20:48 Glucose 212 mg/dL (70-105) H 01/08/19 20:48 POC Glucose 106 MG/DL (70 - 105) H 01/12/19 05:37 Calcium 9.4 mg/dL (8.6-10.3) 01/08/19 20:48 Total Bilirubin 0.3 mg/dL (0.3-1.0) 01/08/19 20:48 AST 25 U/L (13-39) 01/08/19 20:48 ALT 30 U/L (7-52) 01/08/19 20:48 Alkaline Phosphatase 145 U/L (34-104) H 01/08/19 20:48 Troponin I < 0.01 ng/mL (0.01-0.05) L 01/08/19 20:48 B-Natriuretic Peptide 28.9 pg/mL (5.0-100.0) 01/08/19 20:48 Total Protein 7.3 gm/dL (6.0-8.3) 01/08/19 20:48 Albumin 3.8 gm/dL (4.2-5.5) L 01/08/19 20:48 Globulin 3.5 gm/dL 01/08/19 20:48 Albumin/Globulin Ratio 1.1 (1.0-1.8) 01/08/19 20:48 Triglycerides 115 mg/dL (<150) 01/08/19 20:48 Cholesterol 106 mg/dL (<200) 01/08/19 20:48 LDL Cholesterol Direct 49 mg/dL (75-193) L 01/08/19 20:48 HDL Cholesterol 33 mg/dL (23-92) 01/08/19 20:48 TSH 2.82 uIU/ml (0.34-5.60) 01/08/19 20:48 Urine Source MIDSTREAM 01/08/19 22:20 Urine Color YELLOW 01/08/19 22:20 Urine Clarity CLEAR (CLEAR) 01/08/19 22:20 Urine pH 5.5 (4.6 - 8.0) 01/08/19 22:20 Ur Specific [place] 1.015 (1.005-1.030) 01/08/19 22:20 Urine Protein NEGATIVE mg/dL (NEGATIVE) 01/08/19 22:20 Urine Glucose (UA) 100 mg/dL (NEGATIVE) H 01/08/19 22:20 Urine Ketones NEGATIVE mg/dL (NEGATIVE) 01/08/19 22:20 Urine Blood TRACE (NEGATIVE) 01/08/19 22:20 Urine Nitrate NEGATIVE (NEGATIVE) 01/08/19 22:20 Urine Bilirubin NEGATIVE (NEGATIVE) 01/08/19 22:20 Urine Urobilinogen 0.2 E.U./dL (0.2 - 1.0) 01/08/19 22:20 Ur Leukocyte Esterase MODERATE (NEGATIVE) H 01/08/19 22:20 Urine RBC 2-5 /hpf (0-5) H 01/08/19 22:20 Urine WBC 6-10 /hpf (0-5) 01/08/19 22:20 Ur Epithelial Cells OCCASIONAL /lpf (FEW) 01/08/19 22:20 Urine Bacteria FEW /hpf (NONE SEEN) 01/08/19 22:20 Scabies Examination NEGATIVE FOR SCABIES 01/09/19 13:06 - Physical Exam Vitals and I&O: Vital Signs Temp 97.3 F 01/12/19 14:45 Pulse 74 01/12/19 14:45 Resp 20 01/12/19 14:45 BP 139/77 01/12/19 14:45 Pulse Ox 97 01/12/19 14:45 Intake & Output 01/12/19 01/12/19 01/13/19 06:59 18:59 06:59 Intake Total 240 850 Balance 240 850 Intake: Oral 240 850 Other: # Voids 1 4 # Bowel Movements 1 1 Stool Characteristics Soft Soft Active Medications: Current Medications Acetaminophen (Tylenol) 650 mg PO Q4HR PRN PRN Reason: Pain (Mild) Stop: 03/10/19 01:00 Amiodarone HCl (Cordarone) 200 mg PO DAILY SILAS Stop: 03/10/19 08:59 Last Admin: 01/12/19 09:00 Dose: 200 mg Cholecalciferol (Vitamin D3) 1,000 iu PO DAILY SLIAS Stop: 03/10/19 08:59 Last Admin: 01/12/19 09:00 Dose: 1,000 iu Dextrose (D50w) 50 ml IVP PRN PRN PRN Reason: Blood Glucose less than 70 Stop: 03/10/19 17:56 Dextrose (Glutose 40%) 18.75 gm PO PRN PRN PRN Reason: Blood Glucose less than 70 Stop: 03/10/19 17:56 Escitalopram Oxalate (Lexapro) 5 mg PO HS [facility]; Protocol Stop: 03/10/19 20:59 Last Admin: 01/11/19 20:46 Dose: 5 mg Famotidine (Pepcid) 20 mg PO DAILY SILAS Stop: 03/10/19 08:59 Last Admin: 01/12/19 09:00 Dose: 20 mg Ferrous Sulfate (Iron) 325 mg PO DAILY SILAS Stop: 03/10/19 08:59 Last Admin: 01/12/19 09:00 Dose: 325 mg Glucagon (Glucagen) 1 mg IM PRN PRN PRN Reason: Blood Glucose less than 70 Stop: 03/10/19 17:56 Insulin Human Lispro (Humalog Insulin Sliding Scale) 0 units SUBQ ACHS [facility]; Protocol Stop: 03/10/19 20:59 Last Admin: 01/12/19 16:14 Dose: Not Given Lorazepam (Ativan) 0.5 mg PO Q4HR PRN; Protocol PRN Reason: Anxiety Stop: 02/08/19 00:54 Magnesium Hydroxide (Milk Of Magnesia) 30 ml PO HS PRN PRN Reason: Constipation Stop: 03/10/19 01:00 Memantine (Namenda) 10 mg PO BID [facility] Stop: 03/10/19 08:59 Last Admin: 01/12/19 16:31 Dose: 10 mg Nitroglycerin (Nitrostat) 0.4 mg SL Q5MIN PRN PRN Reason: Chest Pain Stop: 03/10/19 01:00 Simvastatin (Zocor) 20 mg PO HS [facility]; Protocol Stop: 03/10/19 20:59 Last Admin: 01/11/19 20:46 Dose: 20 mg Zolpidem Tartrate (Ambien) 5 mg PO HS PRN PRN Reason: Insomnia Stop: 03/10/19 01:00 General: demented HEENT: PERRLA Neck: Supple, No JVD, No thyromegaly Lungs: CTAB Cardiovascular: RRR, Normal S1, Normal S2, with murmur Abdomen: soft, globular, positive bowel sound Extremities: excoriation, contracture Neurological: no change, disorganized Internal Medicine Assmt/Plan - Assessment Assessment: ASSESSMENT AND PLAN: 1. Hypertension. 2. Diabetes. 3. History of congestive heart failure, compensated. 4. Hypercholesterolemia. 5. Dementia. 6. Osteoarthritis. 7. Paroxysmal atrial fibrillation. 8. Hyponatremia. 9. Renal insufficiency. - Plan Plan: PLAN: PLAN: Continue the patient on oxygen and bronchodilator treatment. Continue on insulin sliding scale. __on__ amiodarone. We will check the patient's thyroid panel. Continue statin. Continue with current care. We will empirically treat the patient with elimite x 1 for the rashes. Wound care is following the patient as well. We will continue to follow. Nutritional Asmnt/Malnutr-PDOC - Dietary Evaluation Malnutrition Findings (Please click <Entered> for more info): Nutritional Asmnt/Malnutrition Start: 01/09/19 15: 57 Text: Status: Complete Freq: Protocol: Document 01/09/19 16:08 LCHENG (Rec: 01/09/19 16:14 [email or web address]) Nutritional Asmnt/Malnutrition Patient General Information Nutritional Screening High Risk Diagnosis psychosis Pertinent Medical Hx/Surgical Hx per nurse note 01/09: atrial fibrillation,UTI,DM,HTN,COPD, osteoatrhritis and hyperlipidemia Subjective Information Consult received for robert sccore 13, general macular red rash. pt seen lying in bed, awake and confused, not able to answer questions at this time. Per EMR, PO intake 100%. Glucose 212 at admission noted. BROOKE valera stated ordered liquid amino acid in medication but it is carried in dietary. Current Diet Order/ Nutrition Support [facility] soft Na 2gm Pertinent Medications vit D3, pepcid, iron, humalog Pertinent Labs 01/09 POC 91-120 01/08 glucose 212, BUN 31, Na 135, alb 3.8 Nutritional Hx/Data Height 1.75 m Height (Calculated Centimeters) 175.3 Current Weight (lbs) 79.379 kg Weight (Calculated Kilograms) 79.4 Weight (Calculated Grams) 21796.7 [place] Body Weight 160 Body Mass Index (BMI) 25.8 Weight Status Overweight GI Symptoms GI Symptoms None Last BM not indicated Difficult in: None Skin Integrity/Comment: rash Current %PO Good (75-100%) Estimated Nutritional Goals BEE in Kcals: Using Current wt Calories/Kcals/Kg 23-27 Kcals Calculated 4284-2475 Protein: Using Current wt Protein g/k Protein Calculated 80 Fluid: ml 1840-2160ml (1ml/kcal) Nutritional Problem 1. Problem Problem altered nutrition related labs Etiology hyperglycemia Signs/Symptoms: glucose 212 at admission Malnutrition Alert Is there a minimum of two criteria No selected? Query Text:Check all the applicable criteria. A minimum of two criteria are recommended for diagnosis of either severe or non-severe malnutrition. Malnutrition Related to Morbid Obesity Malnutrition related to morbid obesity No Intervention/Recommendation Comments 1. Continue with current diet as ordered. Will continue monitor glucose level. Consider adding CCHO diet if glucose continue elevated. 2. Monitor PO intake, wt, labs and skin integrity 3. F/U as high risk in 2-3 days Expected Outcomes/Goals Expected Outcomes/Goals 1. PO intake to meet at least 75% of nutritional needs. 2. Wt stability, skin to remain intact, labs to approach WNL.
[2019-01-12] MEDS: Escitalopram Oxalate 5 mg Tab PO SCH (20:44)
[2019-01-13] MEDS: INSULIN LISPRO SLIDING SCALE 100 UNITS/ML UNIT SUBQ SCH ×4 (06:36→20:53)
[2019-01-13] MEDS: Ferrous Sulfate 325 MG TAB PO SCH (08:17)
[2019-01-13] MEDS: Multivitamin w/ Minerals Tab PO SCH (08:18)
--- NOTE | 2019-01-13 15:58 | Internal Medicine Prog Note ---
Internal Medicine Subjective - Subjective Patient seen and examined:: with staff, chart reviewed Patient is:: awake, verbal, interactive, agitated, confused Per staff patient has:: no adverse event, no episodes of fall, tolerating meds Internal Medicine Objective - Results Result Diagrams: 01/08/19 20:48 01/08/19 20:48 Recent Labs: Laboratory Last Values WBC 8.9 Th/cmm (4.8-10.8) 01/08/19 20:48 RBC 5.13 Mil/cmm (3.80-5.80) 01/08/19 20:48 Hgb 15.0 gm/dL (12-16) 01/08/19 20:48 Hct 46.0 % (41.0-60) 01/08/19 20:48 MCV 89.8 fl (80-99) 01/08/19 20:48 MCH 29.3 pg (27.0-31.0) 01/08/19 20:48 MCHC Differential 32.6 pg (28.0-36.0) 01/08/19 20:48 RDW 13.5 % (11.5-20.0) 01/08/19 20:48 Plt Count 237 Th/cmm (150-400) 01/08/19 20:48 MPV 8.6 fl 01/08/19 20:48 Neutrophils % 72.5 % (40.0-80.0) 01/08/19 20:48 Lymphocytes % 16.5 % (20.0-50.0) L 01/08/19 20:48 Monocytes % 6.2 % (2.0-10.0) 01/08/19 20:48 Eosinophils % 4.7 % (0.0-5.0) 01/08/19 20:48 Basophils % 0.1 % (0.0-2.0) 01/08/19 20:48 Sodium 135 mEq/L (136-145) L 01/08/19 20:48 Potassium 3.9 mEq/L (3.5-5.1) 01/08/19 20:48 Chloride 101 mEq/L (98-107) 01/08/19 20:48 Carbon Dioxide 26.7 mEq/L (21.0-31.0) 01/08/19 20:48 Anion Gap 11.2 (7.0-16.0) 01/08/19 20:48 BUN 31 mg/dL (7-25) H 01/08/19 20:48 Creatinine 1.2 mg/dL (0.7-1.3) 01/08/19 20:48 Est GFR ( Amer) TNP 01/08/19 20:48 Est GFR (Non-Af Amer) TNP 01/08/19 20:48 BUN/Creatinine Ratio 25.8 01/08/19 20:48 Glucose 212 mg/dL (70-105) H 01/08/19 20:48 POC Glucose 93 MG/DL (70 - 105) 01/13/19 06:16 Calcium 9.4 mg/dL (8.6-10.3) 01/08/19 20:48 Total Bilirubin 0.3 mg/dL (0.3-1.0) 01/08/19 20:48 AST 25 U/L (13-39) 01/08/19 20:48 ALT 30 U/L (7-52) 01/08/19 20:48 Alkaline Phosphatase 145 U/L (34-104) H 01/08/19 20:48 Troponin I < 0.01 ng/mL (0.01-0.05) L 01/08/19 20:48 B-Natriuretic Peptide 28.9 pg/mL (5.0-100.0) 01/08/19 20:48 Total Protein 7.3 gm/dL (6.0-8.3) 01/08/19 20:48 Albumin 3.8 gm/dL (4.2-5.5) L 01/08/19 20:48 Globulin 3.5 gm/dL 01/08/19 20:48 Albumin/Globulin Ratio 1.1 (1.0-1.8) 01/08/19 20:48 Triglycerides 115 mg/dL (<150) 01/08/19 20:48 Cholesterol 106 mg/dL (<200) 01/08/19 20:48 LDL Cholesterol Direct 49 mg/dL (75-193) L 01/08/19 20:48 HDL Cholesterol 33 mg/dL (23-92) 01/08/19 20:48 TSH 2.82 uIU/ml (0.34-5.60) 01/08/19 20:48 Urine Source MIDSTREAM 01/08/19 22:20 Urine Color YELLOW 01/08/19 22:20 Urine Clarity CLEAR (CLEAR) 01/08/19 22:20 Urine pH 5.5 (4.6 - 8.0) 01/08/19 22:20 Ur Specific [place] 1.015 (1.005-1.030) 01/08/19 22:20 Urine Protein NEGATIVE mg/dL (NEGATIVE) 01/08/19 22:20 Urine Glucose (UA) 100 mg/dL (NEGATIVE) H 01/08/19 22:20 Urine Ketones NEGATIVE mg/dL (NEGATIVE) 01/08/19 22:20 Urine Blood TRACE (NEGATIVE) 01/08/19 22:20 Urine Nitrate NEGATIVE (NEGATIVE) 01/08/19 22:20 Urine Bilirubin NEGATIVE (NEGATIVE) 01/08/19 22:20 Urine Urobilinogen 0.2 E.U./dL (0.2 - 1.0) 01/08/19 22:20 Ur Leukocyte Esterase MODERATE (NEGATIVE) H 01/08/19 22:20 Urine RBC 2-5 /hpf (0-5) H 01/08/19 22:20 Urine WBC 6-10 /hpf (0-5) 01/08/19 22:20 Ur Epithelial Cells OCCASIONAL /lpf (FEW) 01/08/19 22:20 Urine Bacteria FEW /hpf (NONE SEEN) 01/08/19 22:20 Scabies Examination NEGATIVE FOR SCABIES 01/09/19 13:06 - Physical Exam Vitals and I&O: Vital Signs Temp 96.6 F 01/13/19 14:00 Pulse 76 01/13/19 14:00 Resp 20 01/13/19 14:00 BP 140/76 01/13/19 14:00 Pulse Ox 97 01/13/19 14:00 Intake & Output 01/12/19 01/13/19 01/13/19 18:59 06:59 18:59 Intake Total 850 240 Balance 850 240 Intake: Oral 850 240 Other: # Voids 4 2 # Bowel Movements 1 0 Stool Characteristics Soft Soft Soft Active Medications: Current Medications Acetaminophen (Tylenol) 650 mg PO Q4HR PRN PRN Reason: Pain (Mild) Stop: 03/10/19 01:00 Amiodarone HCl (Cordarone) 200 mg PO DAILY SILAS Stop: 03/10/19 08:59 Last Admin: 01/13/19 08:18 Dose: 200 mg Cholecalciferol (Vitamin D3) 1,000 iu PO DAILY SILAS Stop: 03/10/19 08:59 Last Admin: 01/13/19 08:18 Dose: 1,000 iu Dextrose (D50w) 50 ml IVP PRN PRN PRN Reason: Blood Glucose less than 70 Stop: 03/10/19 17:56 Dextrose (Glutose 40%) 18.75 gm PO PRN PRN PRN Reason: Blood Glucose less than 70 Stop: 03/10/19 17:56 Escitalopram Oxalate (Lexapro) 5 mg PO HS [facility]; Protocol Stop: 03/10/19 20:59 Last Admin: 01/12/19 20:44 Dose: 5 mg Famotidine (Pepcid) 20 mg PO DAILY [facility] Stop: 03/10/19 08:59 Last Admin: 01/13/19 08:18 Dose: 20 mg Ferrous Sulfate (Iron) 325 mg PO DAILY SILAS Stop: 03/10/19 08:59 Last Admin: 01/13/19 08:17 Dose: 325 mg Glucagon (Glucagen) 1 mg IM PRN PRN PRN Reason: Blood Glucose less than 70 Stop: 03/10/19 17:56 Insulin Human Lispro (Humalog Insulin Sliding Scale) 0 units SUBQ ACHS [facility]; Protocol Stop: 03/10/19 20:59 Last Admin: 01/13/19 12:10 Dose: Not Given Lorazepam (Ativan) 0.5 mg PO Q4HR PRN; Protocol PRN Reason: Anxiety Stop: 02/08/19 00:54 Magnesium Hydroxide (Milk Of Magnesia) 30 ml PO HS PRN PRN Reason: Constipation Stop: 03/10/19 01:00 Memantine (Namenda) 10 mg PO BID [facility] Stop: 03/10/19 08:59 Last Admin: 01/13/19 08:18 Dose: 10 mg Nitroglycerin (Nitrostat) 0.4 mg SL Q5MIN PRN PRN Reason: Chest Pain Stop: 03/10/19 01:00 Simvastatin (Zocor) 20 mg PO HS [facility]; Protocol Stop: 03/10/19 20:59 Last Admin: 01/12/19 20:44 Dose: 20 mg Zolpidem Tartrate (Ambien) 5 mg PO HS PRN PRN Reason: Insomnia Stop: 03/10/19 01:00 General: demented HEENT: PERRLA Neck: Supple, No JVD, No thyromegaly Lungs: CTAB Cardiovascular: RRR, Normal S1, Normal S2, with murmur Abdomen: soft, globular, positive bowel sound Extremities: excoriation, contracture Neurological: no change, disorganized Internal Medicine Assmt/Plan - Assessment Assessment: ASSESSMENT AND PLAN: 1. Hypertension. 2. Diabetes. 3. History of congestive heart failure, compensated. 4. Hypercholesterolemia. 5. Dementia. 6. Osteoarthritis. 7. Paroxysmal atrial fibrillation. 8. Hyponatremia. 9. Renal insufficiency. - Plan Plan: PLAN: PLAN: Continue the patient on oxygen and bronchodilator treatment. Continue on insulin sliding scale. __on__ amiodarone. We will check the patient's thyroid panel. Continue statin. Continue with current care. We will empirically treat the patient with elimite x 1 for the rashes. Wound care is following the patient as well. We will continue to follow. Nutritional Asmnt/Malnutr-PDOC - Dietary Evaluation Malnutrition Findings (Please click <Entered> for more info): Nutritional Asmnt/Malnutrition Start: 01/09/19 15: 57 Text: Status: Complete Freq: Protocol: Document 01/09/19 16:08 LCHENG (Rec: 01/09/19 16:14 LCMARING [email or web address]) Nutritional Asmnt/Malnutrition Patient General Information Nutritional Screening High Risk Diagnosis psychosis Pertinent Medical Hx/Surgical Hx per nurse note 01/09: atrial fibrillation,UTI,DM,HTN,COPD, osteoatrhritis and hyperlipidemia Subjective Information Consult received for robert sccore 13, general macular red rash. pt seen lying in bed, awake and confused, not able to answer questions at this time. Per EMR, PO intake 100%. Glucose 212 at admission noted. BROOKE valera stated ordered liquid amino acid in medication but it is carried in dietary. Current Diet Order/ Nutrition Support [facility] soft Na 2gm Pertinent Medications vit D3, pepcid, iron, humalog Pertinent Labs 01/09 POC 91-120 01/08 glucose 212, BUN 31, Na 135, alb 3.8 Nutritional Hx/Data Height 1.75 m Height (Calculated Centimeters) 175.3 Current Weight (lbs) 79.379 kg Weight (Calculated Kilograms) 79.4 Weight (Calculated Grams) 70246.7 [place] Body Weight 160 Body Mass Index (BMI) 25.8 Weight Status Overweight GI Symptoms GI Symptoms None Last BM not indicated Difficult in: None Skin Integrity/Comment: rash Current %PO Good (75-100%) Estimated Nutritional Goals BEE in Kcals: Using Current wt Calories/Kcals/Kg 23-27 Kcals Calculated 2651-8675 Protein: Using Current wt Protein g/k Protein Calculated 80 Fluid: ml 1840-2160ml (1ml/kcal) Nutritional Problem 1. Problem Problem altered nutrition related labs Etiology hyperglycemia Signs/Symptoms: glucose 212 at admission Malnutrition Alert Is there a minimum of two criteria No selected? Query Text:Check all the applicable criteria. A minimum of two criteria are recommended for diagnosis of either severe or non-severe malnutrition. Malnutrition Related to Morbid Obesity Malnutrition related to morbid obesity No Intervention/Recommendation Comments 1. Continue with current diet as ordered. Will continue monitor glucose level. Consider adding CCHO diet if glucose continue elevated. 2. Monitor PO intake, wt, labs and skin integrity 3. F/U as high risk in 2-3 days Expected Outcomes/Goals Expected Outcomes/Goals 1. PO intake to meet at least 75% of nutritional needs. 2. Wt stability, skin to remain intact, labs to approach WNL.
[2019-01-13] MEDS: Escitalopram Oxalate 5 mg Tab PO SCH (20:35)
[2019-01-14] MEDS: INSULIN LISPRO SLIDING SCALE 100 UNITS/ML UNIT SUBQ SCH ×4 (07:08→20:44)
[2019-01-14] MEDS: Multivitamin w/ Minerals Tab PO SCH (09:22)
[2019-01-14] MEDS: Ferrous Sulfate 325 MG TAB PO SCH (09:22)
--- NOTE | 2019-01-14 10:04 | Progress Notes ---
DATE: 01/13/2019 SUBJECTIVE: Chart reviewed and the patient interviewed. Also discussed the patient's condition with the staff and reviewed records and labs. The patient is calmer and he is less agitated and less irritable. The patient also is confused and he is still interacting minimally with others. The patient also still has flat affect and still needs encouragement to get out of his isolation and to interact more. On the other hand, the patient continued to comply with taking medications with no side effects of medications. ASSESSMENT: The patient is still depressed, but showing improvement. TREATMENT PLAN: Continue to monitor behavior and condition closely. Also, continue to work on his isolation. Also continue adjusting medications and followup. [facility]# [id number]
--- NOTE | 2019-01-14 13:16 | Internal Medicine Prog Note ---
Internal Medicine Subjective - Subjective Patient seen and examined:: with staff, chart reviewed Patient is:: awake, verbal, interactive, agitated, confused Per staff patient has:: no adverse event, no episodes of fall, tolerating meds Internal Medicine Objective - Results Result Diagrams: 01/08/19 20:48 01/08/19 20:48 Recent Labs: Laboratory Last Values WBC 8.9 Th/cmm (4.8-10.8) 01/08/19 20:48 RBC 5.13 Mil/cmm (3.80-5.80) 01/08/19 20:48 Hgb 15.0 gm/dL (12-16) 01/08/19 20:48 Hct 46.0 % (41.0-60) 01/08/19 20:48 MCV 89.8 fl (80-99) 01/08/19 20:48 MCH 29.3 pg (27.0-31.0) 01/08/19 20:48 MCHC Differential 32.6 pg (28.0-36.0) 01/08/19 20:48 RDW 13.5 % (11.5-20.0) 01/08/19 20:48 Plt Count 237 Th/cmm (150-400) 01/08/19 20:48 MPV 8.6 fl 01/08/19 20:48 Neutrophils % 72.5 % (40.0-80.0) 01/08/19 20:48 Lymphocytes % 16.5 % (20.0-50.0) L 01/08/19 20:48 Monocytes % 6.2 % (2.0-10.0) 01/08/19 20:48 Eosinophils % 4.7 % (0.0-5.0) 01/08/19 20:48 Basophils % 0.1 % (0.0-2.0) 01/08/19 20:48 Sodium 135 mEq/L (136-145) L 01/08/19 20:48 Potassium 3.9 mEq/L (3.5-5.1) 01/08/19 20:48 Chloride 101 mEq/L (98-107) 01/08/19 20:48 Carbon Dioxide 26.7 mEq/L (21.0-31.0) 01/08/19 20:48 Anion Gap 11.2 (7.0-16.0) 01/08/19 20:48 BUN 31 mg/dL (7-25) H 01/08/19 20:48 Creatinine 1.2 mg/dL (0.7-1.3) 01/08/19 20:48 Est GFR ( Amer) TNP 01/08/19 20:48 Est GFR (Non-Af Amer) TNP 01/08/19 20:48 BUN/Creatinine Ratio 25.8 01/08/19 20:48 Glucose 212 mg/dL (70-105) H 01/08/19 20:48 POC Glucose 115 MG/DL (70 - 105) H 01/14/19 11:18 Calcium 9.4 mg/dL (8.6-10.3) 01/08/19 20:48 Total Bilirubin 0.3 mg/dL (0.3-1.0) 01/08/19 20:48 AST 25 U/L (13-39) 01/08/19 20:48 ALT 30 U/L (7-52) 01/08/19 20:48 Alkaline Phosphatase 145 U/L (34-104) H 01/08/19 20:48 Troponin I < 0.01 ng/mL (0.01-0.05) L 01/08/19 20:48 B-Natriuretic Peptide 28.9 pg/mL (5.0-100.0) 01/08/19 20:48 Total Protein 7.3 gm/dL (6.0-8.3) 01/08/19 20:48 Albumin 3.8 gm/dL (4.2-5.5) L 01/08/19 20:48 Globulin 3.5 gm/dL 01/08/19 20:48 Albumin/Globulin Ratio 1.1 (1.0-1.8) 01/08/19 20:48 Triglycerides 115 mg/dL (<150) 01/08/19 20:48 Cholesterol 106 mg/dL (<200) 01/08/19 20:48 LDL Cholesterol Direct 49 mg/dL (75-193) L 01/08/19 20:48 HDL Cholesterol 33 mg/dL (23-92) 01/08/19 20:48 TSH 2.82 uIU/ml (0.34-5.60) 01/08/19 20:48 Urine Source MIDSTREAM 01/08/19 22:20 Urine Color YELLOW 01/08/19 22:20 Urine Clarity CLEAR (CLEAR) 01/08/19 22:20 Urine pH 5.5 (4.6 - 8.0) 01/08/19 22:20 Ur Specific [place] 1.015 (1.005-1.030) 01/08/19 22:20 Urine Protein NEGATIVE mg/dL (NEGATIVE) 01/08/19 22:20 Urine Glucose (UA) 100 mg/dL (NEGATIVE) H 01/08/19 22:20 Urine Ketones NEGATIVE mg/dL (NEGATIVE) 01/08/19 22:20 Urine Blood TRACE (NEGATIVE) 01/08/19 22:20 Urine Nitrate NEGATIVE (NEGATIVE) 01/08/19 22:20 Urine Bilirubin NEGATIVE (NEGATIVE) 01/08/19 22:20 Urine Urobilinogen 0.2 E.U./dL (0.2 - 1.0) 01/08/19 22:20 Ur Leukocyte Esterase MODERATE (NEGATIVE) H 01/08/19 22:20 Urine RBC 2-5 /hpf (0-5) H 01/08/19 22:20 Urine WBC 6-10 /hpf (0-5) 01/08/19 22:20 Ur Epithelial Cells OCCASIONAL /lpf (FEW) 01/08/19 22:20 Urine Bacteria FEW /hpf (NONE SEEN) 01/08/19 22:20 Scabies Examination NEGATIVE FOR SCABIES 01/09/19 13:06 - Physical Exam Vitals and I&O: Vital Signs Temp 98.2 F 01/14/19 06:27 Pulse 78 01/14/19 09:22 Resp 20 01/14/19 06:27 BP 120/70 01/14/19 06:27 Pulse Ox 98 01/14/19 06:27 Intake & Output 01/13/19 01/14/19 01/14/19 18:59 06:59 18:59 Intake Total 120 Balance 120 Intake: Oral 120 Other: # Voids 3 # Bowel Movements 0 Stool Characteristics Soft Soft Active Medications: Current Medications Acetaminophen (Tylenol) 650 mg PO Q4HR PRN PRN Reason: Pain (Mild) Stop: 03/10/19 01:00 Amiodarone HCl (Cordarone) 200 mg PO DAILY [facility] Stop: 03/10/19 08:59 Last Admin: 01/14/19 09:22 Dose: 200 mg Cholecalciferol (Vitamin D3) 1,000 iu PO DAILY [facility] Stop: 03/10/19 08:59 Last Admin: 01/14/19 09:22 Dose: 1,000 iu Dextrose (D50w) 50 ml IVP PRN PRN PRN Reason: Blood Glucose less than 70 Stop: 03/10/19 17:56 Dextrose (Glutose 40%) 18.75 gm PO PRN PRN PRN Reason: Blood Glucose less than 70 Stop: 03/10/19 17:56 Escitalopram Oxalate (Lexapro) 5 mg PO HS [facility]; Protocol Stop: 03/10/19 20:59 Last Admin: 01/13/19 20:35 Dose: 5 mg Famotidine (Pepcid) 20 mg PO DAILY [facility] Stop: 03/10/19 08:59 Last Admin: 01/14/19 09:22 Dose: 20 mg Ferrous Sulfate (Iron) 325 mg PO DAILY [facility] Stop: 03/10/19 08:59 Last Admin: 01/14/19 09:22 Dose: 325 mg Glucagon (Glucagen) 1 mg IM PRN PRN PRN Reason: Blood Glucose less than 70 Stop: 03/10/19 17:56 Insulin Human Lispro (Humalog Insulin Sliding Scale) 0 units SUBQ ACHS [facility]; Protocol Stop: 03/10/19 20:59 Last Admin: 01/14/19 11:21 Dose: Not Given Lorazepam (Ativan) 0.5 mg PO Q4HR PRN; Protocol PRN Reason: Anxiety Stop: 02/08/19 00:54 Magnesium Hydroxide (Milk Of Magnesia) 30 ml PO HS PRN PRN Reason: Constipation Stop: 03/10/19 01:00 Memantine (Namenda) 10 mg PO BID [facility] Stop: 03/10/19 08:59 Last Admin: 01/14/19 09:22 Dose: 10 mg Nitroglycerin (Nitrostat) 0.4 mg SL Q5MIN PRN PRN Reason: Chest Pain Stop: 03/10/19 01:00 Simvastatin (Zocor) 20 mg PO HS [facility]; Protocol Stop: 03/10/19 20:59 Last Admin: 01/13/19 20:35 Dose: 20 mg Zolpidem Tartrate (Ambien) 5 mg PO HS PRN PRN Reason: Insomnia Stop: 03/10/19 01:00 General: demented HEENT: PERRLA Neck: Supple, No JVD, No thyromegaly Lungs: CTAB Cardiovascular: RRR, Normal S1, Normal S2, with murmur Abdomen: soft, globular, positive bowel sound Extremities: excoriation, contracture Neurological: no change, disorganized Internal Medicine Assmt/Plan - Assessment Assessment: ASSESSMENT AND PLAN: 1. Hypertension. 2. Diabetes. 3. History of congestive heart failure, compensated. 4. Hypercholesterolemia. 5. Dementia. 6. Osteoarthritis. 7. Paroxysmal atrial fibrillation. 8. Hyponatremia. 9. Renal insufficiency. - Plan Plan: PLAN: PLAN: Continue the patient on oxygen and bronchodilator treatment. Continue on insulin sliding scale. __on__ amiodarone. We will check the patient's thyroid panel. Continue statin. Continue with current care. We will empirically treat the patient with elimite x 1 for the rashes. Wound care is following the patient as well. We will continue to follow. Nutritional Asmnt/Malnutr-PDOC - Dietary Evaluation Malnutrition Findings (Please click <Entered> for more info): Nutritional Asmnt/Malnutrition Start: 01/09/19 15: 57 Text: Status: Complete Freq: Protocol: Document 01/09/19 16:08 LCHENG (Rec: 01/09/19 16:14 [email or web address]) Nutritional Asmnt/Malnutrition Patient General Information Nutritional Screening High Risk Diagnosis psychosis Pertinent Medical Hx/Surgical Hx per nurse note 01/09: atrial fibrillation,UTI,DM,HTN,COPD, osteoatrhritis and hyperlipidemia Subjective Information Consult received for robert sccore 13, general macular red rash. pt seen lying in bed, awake and confused, not able to answer questions at this time. Per EMR, PO intake 100%. Glucose 212 at admission noted. BROOKE valera stated ordered liquid amino acid in medication but it is carried in dietary. Current Diet Order/ Nutrition Support [facility] soft Na 2gm Pertinent Medications vit D3, pepcid, iron, humalog Pertinent Labs 01/09 POC 91-120 01/08 glucose 212, BUN 31, Na 135, alb 3.8 Nutritional Hx/Data Height 1.75 m Height (Calculated Centimeters) 175.3 Current Weight (lbs) 79.379 kg Weight (Calculated Kilograms) 79.4 Weight (Calculated Grams) 03522.7 [place] Body Weight 160 Body Mass Index (BMI) 25.8 Weight Status Overweight GI Symptoms GI Symptoms None Last BM not indicated Difficult in: None Skin Integrity/Comment: rash Current %PO Good (75-100%) Estimated Nutritional Goals BEE in Kcals: Using Current wt Calories/Kcals/Kg 23-27 Kcals Calculated 2396-9770 Protein: Using Current wt Protein g/k Protein Calculated 80 Fluid: ml 1840-2160ml (1ml/kcal) Nutritional Problem 1. Problem Problem altered nutrition related labs Etiology hyperglycemia Signs/Symptoms: glucose 212 at admission Malnutrition Alert Is there a minimum of two criteria No selected? Query Text:Check all the applicable criteria. A minimum of two criteria are recommended for diagnosis of either severe or non-severe malnutrition. Malnutrition Related to Morbid Obesity Malnutrition related to morbid obesity No Intervention/Recommendation Comments 1. Continue with current diet as ordered. Will continue monitor glucose level. Consider adding CCHO diet if glucose continue elevated. 2. Monitor PO intake, wt, labs and skin integrity 3. F/U as high risk in 2-3 days Expected Outcomes/Goals Expected Outcomes/Goals 1. PO intake to meet at least 75% of nutritional needs. 2. Wt stability, skin to remain intact, labs to approach WNL.
[2019-01-14] MEDS: Escitalopram Oxalate 5 mg Tab PO SCH (20:44)
--- NOTE | 2019-01-14 23:13 | Progress Notes ---
DATE: 01/14/2019 SUBJECTIVE: Chart reviewed and the patient interviewed. Also discussed the patient's condition with the staff and reviewed records and labs. The patient is calm and quieter and is less irritable and less agitated. The patient also interacting more with peers and with others. The patient is still withdrawn and guarded and still needs close monitoring and at times feels hopeless and helpless. Otherwise, the patient is compliant with taking his medications with no side effects of medications. ASSESSMENT: The patient is still depressed and still seems to be psychotic. TREATMENT PLAN: Continue to monitor behavior and condition closely. Also, continue adjusting psychotropic medications and work on behavioral modification. JOB# [id number]
[2019-01-15] MEDS: INSULIN LISPRO SLIDING SCALE 100 UNITS/ML UNIT SUBQ SCH ×4 (06:34→20:48)
[2019-01-15] MEDS: Ferrous Sulfate 325 MG TAB PO SCH (09:43)
[2019-01-15] MEDS: Multivitamin w/ Minerals Tab PO SCH (09:43)
--- NOTE | 2019-01-15 13:10 | Internal Medicine Prog Note ---
Internal Medicine Subjective - Subjective Patient seen and examined:: with staff, chart reviewed Patient is:: awake, verbal, interactive, agitated, confused Per staff patient has:: no adverse event, no episodes of fall, tolerating meds Internal Medicine Objective - Results Result Diagrams: 01/08/19 20:48 01/08/19 20:48 Recent Labs: Laboratory Last Values WBC 8.9 Th/cmm (4.8-10.8) 01/08/19 20:48 RBC 5.13 Mil/cmm (3.80-5.80) 01/08/19 20:48 Hgb 15.0 gm/dL (12-16) 01/08/19 20:48 Hct 46.0 % (41.0-60) 01/08/19 20:48 MCV 89.8 fl (80-99) 01/08/19 20:48 MCH 29.3 pg (27.0-31.0) 01/08/19 20:48 MCHC Differential 32.6 pg (28.0-36.0) 01/08/19 20:48 RDW 13.5 % (11.5-20.0) 01/08/19 20:48 Plt Count 237 Th/cmm (150-400) 01/08/19 20:48 MPV 8.6 fl 01/08/19 20:48 Neutrophils % 72.5 % (40.0-80.0) 01/08/19 20:48 Lymphocytes % 16.5 % (20.0-50.0) L 01/08/19 20:48 Monocytes % 6.2 % (2.0-10.0) 01/08/19 20:48 Eosinophils % 4.7 % (0.0-5.0) 01/08/19 20:48 Basophils % 0.1 % (0.0-2.0) 01/08/19 20:48 Sodium 135 mEq/L (136-145) L 01/08/19 20:48 Potassium 3.9 mEq/L (3.5-5.1) 01/08/19 20:48 Chloride 101 mEq/L (98-107) 01/08/19 20:48 Carbon Dioxide 26.7 mEq/L (21.0-31.0) 01/08/19 20:48 Anion Gap 11.2 (7.0-16.0) 01/08/19 20:48 BUN 31 mg/dL (7-25) H 01/08/19 20:48 Creatinine 1.2 mg/dL (0.7-1.3) 01/08/19 20:48 Est GFR ( Amer) TNP 01/08/19 20:48 Est GFR (Non-Af Amer) TNP 01/08/19 20:48 BUN/Creatinine Ratio 25.8 01/08/19 20:48 Glucose 212 mg/dL (70-105) H 01/08/19 20:48 POC Glucose 195 MG/DL (70 - 105) H 01/15/19 11:42 Calcium 9.4 mg/dL (8.6-10.3) 01/08/19 20:48 Total Bilirubin 0.3 mg/dL (0.3-1.0) 01/08/19 20:48 AST 25 U/L (13-39) 01/08/19 20:48 ALT 30 U/L (7-52) 01/08/19 20:48 Alkaline Phosphatase 145 U/L (34-104) H 01/08/19 20:48 Troponin I < 0.01 ng/mL (0.01-0.05) L 01/08/19 20:48 B-Natriuretic Peptide 28.9 pg/mL (5.0-100.0) 01/08/19 20:48 Total Protein 7.3 gm/dL (6.0-8.3) 01/08/19 20:48 Albumin 3.8 gm/dL (4.2-5.5) L 01/08/19 20:48 Globulin 3.5 gm/dL 01/08/19 20:48 Albumin/Globulin Ratio 1.1 (1.0-1.8) 01/08/19 20:48 Triglycerides 115 mg/dL (<150) 01/08/19 20:48 Cholesterol 106 mg/dL (<200) 01/08/19 20:48 LDL Cholesterol Direct 49 mg/dL (75-193) L 01/08/19 20:48 HDL Cholesterol 33 mg/dL (23-92) 01/08/19 20:48 TSH 2.82 uIU/ml (0.34-5.60) 01/08/19 20:48 Urine Source MIDSTREAM 01/08/19 22:20 Urine Color YELLOW 01/08/19 22:20 Urine Clarity CLEAR (CLEAR) 01/08/19 22:20 Urine pH 5.5 (4.6 - 8.0) 01/08/19 22:20 Ur Specific [place] 1.015 (1.005-1.030) 01/08/19 22:20 Urine Protein NEGATIVE mg/dL (NEGATIVE) 01/08/19 22:20 Urine Glucose (UA) 100 mg/dL (NEGATIVE) H 01/08/19 22:20 Urine Ketones NEGATIVE mg/dL (NEGATIVE) 01/08/19 22:20 Urine Blood TRACE (NEGATIVE) 01/08/19 22:20 Urine Nitrate NEGATIVE (NEGATIVE) 01/08/19 22:20 Urine Bilirubin NEGATIVE (NEGATIVE) 01/08/19 22:20 Urine Urobilinogen 0.2 E.U./dL (0.2 - 1.0) 01/08/19 22:20 Ur Leukocyte Esterase MODERATE (NEGATIVE) H 01/08/19 22:20 Urine RBC 2-5 /hpf (0-5) H 01/08/19 22:20 Urine WBC 6-10 /hpf (0-5) 01/08/19 22:20 Ur Epithelial Cells OCCASIONAL /lpf (FEW) 01/08/19 22:20 Urine Bacteria FEW /hpf (NONE SEEN) 01/08/19 22:20 Scabies Examination NEGATIVE FOR SCABIES 01/09/19 13:06 - Physical Exam Vitals and I&O: Vital Signs Temp 98.8 F 01/15/19 06:33 Pulse 71 01/15/19 09:44 Resp 20 01/15/19 11:33 BP 131/70 01/15/19 06:33 Pulse Ox 97 01/15/19 06:33 Intake & Output 01/14/19 01/15/19 01/15/19 18:59 06:59 18:59 Intake Total 120 Output Total 1 Balance 119 Intake: Oral 120 Output: Urine/Stool Mix 1 Other: # Voids 4 3 # Bowel Movements 0 Stool Characteristics Soft Soft Active Medications: Current Medications Acetaminophen (Tylenol) 650 mg PO Q4HR PRN PRN Reason: Pain (Mild) Stop: 03/10/19 01:00 Amiodarone HCl (Cordarone) 200 mg PO DAILY [facility] Stop: 03/10/19 08:59 Last Admin: 01/15/19 09:44 Dose: 200 mg Cholecalciferol (Vitamin D3) 1,000 iu PO DAILY [facility] Stop: 03/10/19 08:59 Last Admin: 01/15/19 09:43 Dose: 1,000 iu Dextrose (D50w) 50 ml IVP PRN PRN PRN Reason: Blood Glucose less than 70 Stop: 03/10/19 17:56 Dextrose (Glutose 40%) 18.75 gm PO PRN PRN PRN Reason: Blood Glucose less than 70 Stop: 03/10/19 17:56 Escitalopram Oxalate (Lexapro) 10 mg PO HS [facility]; Protocol Stop: 03/16/19 20:59 Famotidine (Pepcid) 20 mg PO DAILY [facility] Stop: 03/10/19 08:59 Last Admin: 01/15/19 09:43 Dose: 20 mg Ferrous Sulfate (Iron) 325 mg PO DAILY [facility] Stop: 03/10/19 08:59 Last Admin: 01/15/19 09:43 Dose: 325 mg Glucagon (Glucagen) 1 mg IM PRN PRN PRN Reason: Blood Glucose less than 70 Stop: 03/10/19 17:56 Insulin Human Lispro (Humalog Insulin Sliding Scale) 0 units SUBQ ACHS [facility]; Protocol Stop: 03/10/19 20:59 Last Admin: 01/15/19 11:51 Dose: 2 units Lorazepam (Ativan) 0.5 mg PO Q4HR PRN; Protocol PRN Reason: Anxiety Stop: 02/08/19 00:54 Magnesium Hydroxide (Milk Of Magnesia) 30 ml PO HS PRN PRN Reason: Constipation Stop: 03/10/19 01:00 Memantine (Namenda) 10 mg PO BID [facility] Stop: 03/10/19 08:59 Last Admin: 01/15/19 09:44 Dose: 10 mg Nitroglycerin (Nitrostat) 0.4 mg SL Q5MIN PRN PRN Reason: Chest Pain Stop: 03/10/19 01:00 Simvastatin (Zocor) 20 mg PO HS [facility]; Protocol Stop: 03/10/19 20:59 Last Admin: 01/14/19 20:44 Dose: 20 mg Zolpidem Tartrate (Ambien) 5 mg PO HS PRN PRN Reason: Insomnia Stop: 03/10/19 01:00 General: demented HEENT: PERRLA Neck: Supple, No JVD, No thyromegaly Lungs: CTAB Cardiovascular: RRR, Normal S1, Normal S2, with murmur Abdomen: soft, globular, positive bowel sound Extremities: excoriation, contracture Neurological: no change, disorganized Internal Medicine Assmt/Plan - Assessment Assessment: ASSESSMENT AND PLAN: 1. Hypertension. 2. Diabetes. 3. History of congestive heart failure, compensated. 4. Hypercholesterolemia. 5. Dementia. 6. Osteoarthritis. 7. Paroxysmal atrial fibrillation. 8. Hyponatremia. 9. Renal insufficiency. - Plan Plan: PLAN: PLAN: Continue the patient on oxygen and bronchodilator treatment. Continue on insulin sliding scale. __on__ amiodarone. We will check the patient's thyroid panel. Continue statin. Continue with current care. We will empirically treat the patient with elimite x 1 for the rashes. Wound care is following the patient as well. We will continue to follow. Nutritional Asmnt/Malnutr-PDOC - Dietary Evaluation Malnutrition Findings (Please click <Entered> for more info): Nutritional Asmnt/Malnutrition Start: 01/09/19 15: 57 Text: Status: Complete Freq: Protocol: Document 01/09/19 16:08 LCHENG (Rec: 01/09/19 16:14 LCMARING [email or web address]) Nutritional Asmnt/Malnutrition Patient General Information Nutritional Screening High Risk Diagnosis psychosis Pertinent Medical Hx/Surgical Hx per nurse note 01/09: atrial fibrillation,UTI,DM,HTN,COPD, osteoatrhritis and hyperlipidemia Subjective Information Consult received for robert sccore 13, general macular red rash. pt seen lying in bed, awake and confused, not able to answer questions at this time. Per EMR, PO intake 100%. Glucose 212 at admission noted. BROOKE valera stated ordered liquid amino acid in medication but it is carried in dietary. Current Diet Order/ Nutrition Support [facility] soft Na 2gm Pertinent Medications vit D3, pepcid, iron, humalog Pertinent Labs 01/09 POC 91-120 01/08 glucose 212, BUN 31, Na 135, alb 3.8 Nutritional Hx/Data Height 1.75 m Height (Calculated Centimeters) 175.3 Current Weight (lbs) 79.379 kg Weight (Calculated Kilograms) 79.4 Weight (Calculated Grams) 17479.7 [place] Body Weight 160 Body Mass Index (BMI) 25.8 Weight Status Overweight GI Symptoms GI Symptoms None Last BM not indicated Difficult in: None Skin Integrity/Comment: rash Current %PO Good (75-100%) Estimated Nutritional Goals BEE in Kcals: Using Current wt Calories/Kcals/Kg 23-27 Kcals Calculated 5576-8638 Protein: Using Current wt Protein g/k Protein Calculated 80 Fluid: ml 1840-2160ml (1ml/kcal) Nutritional Problem 1. Problem Problem altered nutrition related labs Etiology hyperglycemia Signs/Symptoms: glucose 212 at admission Malnutrition Alert Is there a minimum of two criteria No selected? Query Text:Check all the applicable criteria. A minimum of two criteria are recommended for diagnosis of either severe or non-severe malnutrition. Malnutrition Related to Morbid Obesity Malnutrition related to morbid obesity No Intervention/Recommendation Comments 1. Continue with current diet as ordered. Will continue monitor glucose level. Consider adding CCHO diet if glucose continue elevated. 2. Monitor PO intake, wt, labs and skin integrity 3. F/U as high risk in 2-3 days Expected Outcomes/Goals Expected Outcomes/Goals 1. PO intake to meet at least 75% of nutritional needs. 2. Wt stability, skin to remain intact, labs to approach WNL.
--- NOTE | 2019-01-16 02:54 | Progress Notes ---
DATE: 01/15/[address] Galeana. Case was discussed with staff of the patient, reviewed records. This is a 78-year-old male, who was admitted on 01/09/2019 because of depression, came from [facility], feeling hopeless and helpless, minimal interaction with staff despite encouragement unable to socialize or express himself. The patient with a history of depression. The patient continues to be depressed, isolating in his room. Continues to have episodes of agitation, irritability, though staff reports some progress with more interaction. He continues to be psychotic. He has been compliant with the medication with no side effects, no sedation, no nausea. He is on Lexapro 5 mg at bedtime. No side effects with the medication, no sedation, no nausea and no extrapyramidal symptoms. I will be increasing his Lexapro to 10 mg a day and we will continue to work with the patient in group therapy, milieu therapy, and adjust the medication as needed. JOB# [id number]
[2019-01-16] MEDS: INSULIN LISPRO SLIDING SCALE 100 UNITS/ML UNIT SUBQ SCH ×4 (06:48→20:33)
[2019-01-16] MEDS: Multivitamin w/ Minerals Tab PO SCH (08:47)
[2019-01-16] MEDS: Ferrous Sulfate 325 MG TAB PO SCH (08:47)
--- NOTE | 2019-01-16 12:27 | Internal Medicine Prog Note ---
Internal Medicine Subjective - Subjective Patient seen and examined:: with staff, chart reviewed Patient is:: awake, verbal, interactive, agitated, confused Per staff patient has:: no adverse event, no episodes of fall, tolerating meds Internal Medicine Objective - Results Result Diagrams: 01/08/19 20:48 01/08/19 20:48 Recent Labs: Laboratory Last Values WBC 8.9 Th/cmm (4.8-10.8) 01/08/19 20:48 RBC 5.13 Mil/cmm (3.80-5.80) 01/08/19 20:48 Hgb 15.0 gm/dL (12-16) 01/08/19 20:48 Hct 46.0 % (41.0-60) 01/08/19 20:48 MCV 89.8 fl (80-99) 01/08/19 20:48 MCH 29.3 pg (27.0-31.0) 01/08/19 20:48 MCHC Differential 32.6 pg (28.0-36.0) 01/08/19 20:48 RDW 13.5 % (11.5-20.0) 01/08/19 20:48 Plt Count 237 Th/cmm (150-400) 01/08/19 20:48 MPV 8.6 fl 01/08/19 20:48 Neutrophils % 72.5 % (40.0-80.0) 01/08/19 20:48 Lymphocytes % 16.5 % (20.0-50.0) L 01/08/19 20:48 Monocytes % 6.2 % (2.0-10.0) 01/08/19 20:48 Eosinophils % 4.7 % (0.0-5.0) 01/08/19 20:48 Basophils % 0.1 % (0.0-2.0) 01/08/19 20:48 Sodium 135 mEq/L (136-145) L 01/08/19 20:48 Potassium 3.9 mEq/L (3.5-5.1) 01/08/19 20:48 Chloride 101 mEq/L (98-107) 01/08/19 20:48 Carbon Dioxide 26.7 mEq/L (21.0-31.0) 01/08/19 20:48 Anion Gap 11.2 (7.0-16.0) 01/08/19 20:48 BUN 31 mg/dL (7-25) H 01/08/19 20:48 Creatinine 1.2 mg/dL (0.7-1.3) 01/08/19 20:48 Est GFR ( Amer) TNP 01/08/19 20:48 Est GFR (Non-Af Amer) TNP 01/08/19 20:48 BUN/Creatinine Ratio 25.8 01/08/19 20:48 Glucose 212 mg/dL (70-105) H 01/08/19 20:48 POC Glucose 130 MG/DL (70 - 105) H 01/16/19 05:53 Calcium 9.4 mg/dL (8.6-10.3) 01/08/19 20:48 Total Bilirubin 0.3 mg/dL (0.3-1.0) 01/08/19 20:48 AST 25 U/L (13-39) 01/08/19 20:48 ALT 30 U/L (7-52) 01/08/19 20:48 Alkaline Phosphatase 145 U/L (34-104) H 01/08/19 20:48 Troponin I < 0.01 ng/mL (0.01-0.05) L 01/08/19 20:48 B-Natriuretic Peptide 28.9 pg/mL (5.0-100.0) 01/08/19 20:48 Total Protein 7.3 gm/dL (6.0-8.3) 01/08/19 20:48 Albumin 3.8 gm/dL (4.2-5.5) L 01/08/19 20:48 Globulin 3.5 gm/dL 01/08/19 20:48 Albumin/Globulin Ratio 1.1 (1.0-1.8) 01/08/19 20:48 Triglycerides 115 mg/dL (<150) 01/08/19 20:48 Cholesterol 106 mg/dL (<200) 01/08/19 20:48 LDL Cholesterol Direct 49 mg/dL (75-193) L 01/08/19 20:48 HDL Cholesterol 33 mg/dL (23-92) 01/08/19 20:48 TSH 2.82 uIU/ml (0.34-5.60) 01/08/19 20:48 Urine Source MIDSTREAM 01/08/19 22:20 Urine Color YELLOW 01/08/19 22:20 Urine Clarity CLEAR (CLEAR) 01/08/19 22:20 Urine pH 5.5 (4.6 - 8.0) 01/08/19 22:20 Ur Specific [place] 1.015 (1.005-1.030) 01/08/19 22:20 Urine Protein NEGATIVE mg/dL (NEGATIVE) 01/08/19 22:20 Urine Glucose (UA) 100 mg/dL (NEGATIVE) H 01/08/19 22:20 Urine Ketones NEGATIVE mg/dL (NEGATIVE) 01/08/19 22:20 Urine Blood TRACE (NEGATIVE) 01/08/19 22:20 Urine Nitrate NEGATIVE (NEGATIVE) 01/08/19 22:20 Urine Bilirubin NEGATIVE (NEGATIVE) 01/08/19 22:20 Urine Urobilinogen 0.2 E.U./dL (0.2 - 1.0) 01/08/19 22:20 Ur Leukocyte Esterase MODERATE (NEGATIVE) H 01/08/19 22:20 Urine RBC 2-5 /hpf (0-5) H 01/08/19 22:20 Urine WBC 6-10 /hpf (0-5) 01/08/19 22:20 Ur Epithelial Cells OCCASIONAL /lpf (FEW) 01/08/19 22:20 Urine Bacteria FEW /hpf (NONE SEEN) 01/08/19 22:20 Scabies Examination NEGATIVE FOR SCABIES 01/09/19 13:06 - Physical Exam Vitals and I&O: Vital Signs Temp 98.0 F 01/16/19 06:02 Pulse 86 01/16/19 08:47 Resp 18 01/16/19 07:41 BP 133/65 01/16/19 06:02 Pulse Ox 95 01/16/19 06:02 Intake & Output 01/15/19 01/16/19 01/16/19 18:59 06:59 18:59 Intake Total 800 180 Balance 800 180 Intake: Oral 800 180 Other: # Voids 3 2 # Bowel Movements 0 1 Stool Characteristics Soft Active Medications: Current Medications Acetaminophen (Tylenol) 650 mg PO Q4HR PRN PRN Reason: Pain (Mild) Stop: 03/10/19 01:00 Amiodarone HCl (Cordarone) 200 mg PO DAILY [facility] Stop: 03/10/19 08:59 Last Admin: 01/16/19 08:47 Dose: 200 mg Cholecalciferol (Vitamin D3) 1,000 iu PO DAILY [facility] Stop: 03/10/19 08:59 Last Admin: 01/16/19 08:48 Dose: 1,000 iu Dextrose (D50w) 50 ml IVP PRN PRN PRN Reason: Blood Glucose less than 70 Stop: 03/10/19 17:56 Dextrose (Glutose 40%) 18.75 gm PO PRN PRN PRN Reason: Blood Glucose less than 70 Stop: 03/10/19 17:56 Escitalopram Oxalate (Lexapro) 10 mg PO HS [facility]; Protocol Stop: 03/16/19 20:59 Last Admin: 01/15/19 20:47 Dose: 10 mg Famotidine (Pepcid) 20 mg PO DAILY [facility] Stop: 03/10/19 08:59 Last Admin: 01/16/19 08:48 Dose: 20 mg Ferrous Sulfate (Iron) 325 mg PO DAILY [facility] Stop: 03/10/19 08:59 Last Admin: 01/16/19 08:47 Dose: 325 mg Glucagon (Glucagen) 1 mg IM PRN PRN PRN Reason: Blood Glucose less than 70 Stop: 03/10/19 17:56 Insulin Human Lispro (Humalog Insulin Sliding Scale) 0 units SUBQ ACHS [facility]; Protocol Stop: 03/10/19 20:59 Last Admin: 01/16/19 06:48 Dose: Not Given Lorazepam (Ativan) 0.5 mg PO Q4HR PRN; Protocol PRN Reason: Anxiety Stop: 02/08/19 00:54 Magnesium Hydroxide (Milk Of Magnesia) 30 ml PO HS PRN PRN Reason: Constipation Stop: 03/10/19 01:00 Memantine (Namenda) 10 mg PO BID [facility] Stop: 03/10/19 08:59 Last Admin: 01/16/19 08:47 Dose: 10 mg Nitroglycerin (Nitrostat) 0.4 mg SL Q5MIN PRN PRN Reason: Chest Pain Stop: 03/10/19 01:00 Simvastatin (Zocor) 20 mg PO HS [facility]; Protocol Stop: 03/10/19 20:59 Last Admin: 01/15/19 20:47 Dose: 20 mg Zolpidem Tartrate (Ambien) 5 mg PO HS PRN PRN Reason: Insomnia Stop: 03/10/19 01:00 Last Admin: 01/15/19 20:47 Dose: 5 mg General: demented HEENT: PERRLA Neck: Supple, No JVD, No thyromegaly Lungs: CTAB Cardiovascular: RRR, Normal S1, Normal S2, with murmur Abdomen: soft, globular, positive bowel sound Extremities: excoriation, contracture Neurological: no change, disorganized Internal Medicine Assmt/Plan - Assessment Assessment: ASSESSMENT AND PLAN: 1. Hypertension. 2. Diabetes. 3. History of congestive heart failure, compensated. 4. Hypercholesterolemia. 5. Dementia. 6. Osteoarthritis. 7. Paroxysmal atrial fibrillation. 8. Hyponatremia. 9. Renal insufficiency. - Plan Plan: PLAN: PLAN: Continue the patient on oxygen and bronchodilator treatment. Continue on insulin sliding scale. __on__ amiodarone. We will check the patient's thyroid panel. Continue statin. Continue with current care. We will empirically treat the patient with elimite x 1 for the rashes. Wound care is following the patient as well. We will continue to follow. Nutritional Asmnt/Malnutr-PDOC - Dietary Evaluation Malnutrition Findings (Please click <Entered> for more info): Nutritional Asmnt/Malnutrition Start: 01/09/19 15: 57 Text: Status: Complete Freq: Protocol: Document 01/09/19 16:08 LCHENG (Rec: 01/09/19 16:14 [email or web address] [email or web address]) Nutritional Asmnt/Malnutrition Patient General Information Nutritional Screening High Risk Diagnosis psychosis Pertinent Medical Hx/Surgical Hx per nurse note 01/09: atrial fibrillation,UTI,DM,HTN,COPD, osteoatrhritis and hyperlipidemia Subjective Information Consult received for robert sccore 13, general macular red rash. pt seen lying in bed, awake and confused, not able to answer questions at this time. Per EMR, PO intake 100%. Glucose 212 at admission noted. BROOKE valera stated ordered liquid amino acid in medication but it is carried in dietary. Current Diet Order/ Nutrition Support [facility] soft Na 2gm Pertinent Medications vit D3, pepcid, iron, humalog Pertinent Labs 01/09 POC 91-120 01/08 glucose 212, BUN 31, Na 135, alb 3.8 Nutritional Hx/Data Height 1.75 m Height (Calculated Centimeters) 175.3 Current Weight (lbs) 79.379 kg Weight (Calculated Kilograms) 79.4 Weight (Calculated Grams) 24423.7 [place] Body Weight 160 Body Mass Index (BMI) 25.8 Weight Status Overweight GI Symptoms GI Symptoms None Last BM not indicated Difficult in: None Skin Integrity/Comment: rash Current %PO Good (75-100%) Estimated Nutritional Goals BEE in Kcals: Using Current wt Calories/Kcals/Kg 23-27 Kcals Calculated 2328-3558 Protein: Using Current wt Protein g/k Protein Calculated 80 Fluid: ml 1840-2160ml (1ml/kcal) Nutritional Problem 1. Problem Problem altered nutrition related labs Etiology hyperglycemia Signs/Symptoms: glucose 212 at admission Malnutrition Alert Is there a minimum of two criteria No selected? Query Text:Check all the applicable criteria. A minimum of two criteria are recommended for diagnosis of either severe or non-severe malnutrition. Malnutrition Related to Morbid Obesity Malnutrition related to morbid obesity No Intervention/Recommendation Comments 1. Continue with current diet as ordered. Will continue monitor glucose level. Consider adding CCHO diet if glucose continue elevated. 2. Monitor PO intake, wt, labs and skin integrity 3. F/U as high risk in 2-3 days Expected Outcomes/Goals Expected Outcomes/Goals 1. PO intake to meet at least 75% of nutritional needs. 2. Wt stability, skin to remain intact, labs to approach WNL.
[2019-01-17] MEDS: INSULIN LISPRO SLIDING SCALE 100 UNITS/ML UNIT SUBQ SCH ×4 (06:50→20:56)
[2019-01-17] MEDS: Ferrous Sulfate 325 MG TAB PO SCH ×2 (08:41→10:15)
[2019-01-17] MEDS: Multivitamin w/ Minerals Tab PO SCH ×2 (08:41→10:15)
--- NOTE | 2019-01-17 12:37 | Internal Medicine Prog Note ---
Internal Medicine Subjective - Subjective Patient seen and examined:: with staff, chart reviewed Patient is:: awake, verbal, interactive, agitated, confused Per staff patient has:: no adverse event, no episodes of fall, tolerating meds Internal Medicine Objective - Results Result Diagrams: 01/08/19 20:48 01/08/19 20:48 Recent Labs: Laboratory Last Values WBC 8.9 Th/cmm (4.8-10.8) 01/08/19 20:48 RBC 5.13 Mil/cmm (3.80-5.80) 01/08/19 20:48 Hgb 15.0 gm/dL (12-16) 01/08/19 20:48 Hct 46.0 % (41.0-60) 01/08/19 20:48 MCV 89.8 fl (80-99) 01/08/19 20:48 MCH 29.3 pg (27.0-31.0) 01/08/19 20:48 MCHC Differential 32.6 pg (28.0-36.0) 01/08/19 20:48 RDW 13.5 % (11.5-20.0) 01/08/19 20:48 Plt Count 237 Th/cmm (150-400) 01/08/19 20:48 MPV 8.6 fl 01/08/19 20:48 Neutrophils % 72.5 % (40.0-80.0) 01/08/19 20:48 Lymphocytes % 16.5 % (20.0-50.0) L 01/08/19 20:48 Monocytes % 6.2 % (2.0-10.0) 01/08/19 20:48 Eosinophils % 4.7 % (0.0-5.0) 01/08/19 20:48 Basophils % 0.1 % (0.0-2.0) 01/08/19 20:48 Sodium 135 mEq/L (136-145) L 01/08/19 20:48 Potassium 3.9 mEq/L (3.5-5.1) 01/08/19 20:48 Chloride 101 mEq/L (98-107) 01/08/19 20:48 Carbon Dioxide 26.7 mEq/L (21.0-31.0) 01/08/19 20:48 Anion Gap 11.2 (7.0-16.0) 01/08/19 20:48 BUN 31 mg/dL (7-25) H 01/08/19 20:48 Creatinine 1.2 mg/dL (0.7-1.3) 01/08/19 20:48 Est GFR ( Amer) TNP 01/08/19 20:48 Est GFR (Non-Af Amer) TNP 01/08/19 20:48 BUN/Creatinine Ratio 25.8 01/08/19 20:48 Glucose 212 mg/dL (70-105) H 01/08/19 20:48 POC Glucose 127 MG/DL (70 - 105) H 01/17/19 11:45 Calcium 9.4 mg/dL (8.6-10.3) 01/08/19 20:48 Total Bilirubin 0.3 mg/dL (0.3-1.0) 01/08/19 20:48 AST 25 U/L (13-39) 01/08/19 20:48 ALT 30 U/L (7-52) 01/08/19 20:48 Alkaline Phosphatase 145 U/L (34-104) H 01/08/19 20:48 Troponin I < 0.01 ng/mL (0.01-0.05) L 01/08/19 20:48 B-Natriuretic Peptide 28.9 pg/mL (5.0-100.0) 01/08/19 20:48 Total Protein 7.3 gm/dL (6.0-8.3) 01/08/19 20:48 Albumin 3.8 gm/dL (4.2-5.5) L 01/08/19 20:48 Globulin 3.5 gm/dL 01/08/19 20:48 Albumin/Globulin Ratio 1.1 (1.0-1.8) 01/08/19 20:48 Triglycerides 115 mg/dL (<150) 01/08/19 20:48 Cholesterol 106 mg/dL (<200) 01/08/19 20:48 LDL Cholesterol Direct 49 mg/dL (75-193) L 01/08/19 20:48 HDL Cholesterol 33 mg/dL (23-92) 01/08/19 20:48 TSH 2.82 uIU/ml (0.34-5.60) 01/08/19 20:48 Urine Source MIDSTREAM 01/08/19 22:20 Urine Color YELLOW 01/08/19 22:20 Urine Clarity CLEAR (CLEAR) 01/08/19 22:20 Urine pH 5.5 (4.6 - 8.0) 01/08/19 22:20 Ur Specific [place] 1.015 (1.005-1.030) 01/08/19 22:20 Urine Protein NEGATIVE mg/dL (NEGATIVE) 01/08/19 22:20 Urine Glucose (UA) 100 mg/dL (NEGATIVE) H 01/08/19 22:20 Urine Ketones NEGATIVE mg/dL (NEGATIVE) 01/08/19 22:20 Urine Blood TRACE (NEGATIVE) 01/08/19 22:20 Urine Nitrate NEGATIVE (NEGATIVE) 01/08/19 22:20 Urine Bilirubin NEGATIVE (NEGATIVE) 01/08/19 22:20 Urine Urobilinogen 0.2 E.U./dL (0.2 - 1.0) 01/08/19 22:20 Ur Leukocyte Esterase MODERATE (NEGATIVE) H 01/08/19 22:20 Urine RBC 2-5 /hpf (0-5) H 01/08/19 22:20 Urine WBC 6-10 /hpf (0-5) 01/08/19 22:20 Ur Epithelial Cells OCCASIONAL /lpf (FEW) 01/08/19 22:20 Urine Bacteria FEW /hpf (NONE SEEN) 01/08/19 22:20 Scabies Examination NEGATIVE FOR SCABIES 01/09/19 13:06 - Physical Exam Vitals and I&O: Vital Signs Temp 98.1 F 01/16/19 14:00 Pulse 88 01/17/19 10:14 Resp 18 01/17/19 08:00 BP 128/72 01/16/19 14:00 Pulse Ox 95 01/16/19 14:00 Intake & Output 01/16/19 01/17/19 01/17/19 18:59 06:59 18:59 Intake Total 700 Balance 700 Intake: Oral 700 Other: # Voids 3 # Bowel Movements 0 Active Medications: Current Medications Acetaminophen (Tylenol) 650 mg PO Q4HR PRN PRN Reason: Pain (Mild) Stop: 03/10/19 01:00 Amiodarone HCl (Cordarone) 200 mg PO DAILY [facility] Stop: 03/10/19 08:59 Last Admin: 01/17/19 10:14 Dose: Not Given Cholecalciferol (Vitamin D3) 1,000 iu PO DAILY [facility] Stop: 03/10/19 08:59 Last Admin: 01/17/19 10:15 Dose: Not Given Dextrose (D50w) 50 ml IVP PRN PRN PRN Reason: Blood Glucose less than 70 Stop: 03/10/19 17:56 Dextrose (Glutose 40%) 18.75 gm PO PRN PRN PRN Reason: Blood Glucose less than 70 Stop: 03/10/19 17:56 Escitalopram Oxalate (Lexapro) 10 mg PO HS [facility]; Protocol Stop: 03/16/19 20:59 Last Admin: 01/16/19 20:32 Dose: 10 mg Famotidine (Pepcid) 20 mg PO DAILY [facility] Stop: 03/10/19 08:59 Last Admin: 01/17/19 10:15 Dose: Not Given Ferrous Sulfate (Iron) 325 mg PO DAILY [facility] Stop: 03/10/19 08:59 Last Admin: 01/17/19 10:15 Dose: Not Given Glucagon (Glucagen) 1 mg IM PRN PRN PRN Reason: Blood Glucose less than 70 Stop: 03/10/19 17:56 Insulin Human Lispro (Humalog Insulin Sliding Scale) 0 units SUBQ [facility]; Protocol Stop: 03/10/19 20:59 Last Admin: 01/17/19 12:02 Dose: Not Given Lorazepam (Ativan) 0.5 mg PO Q4HR PRN; Protocol PRN Reason: Anxiety Stop: 02/08/19 00:54 Magnesium Hydroxide (Milk Of Magnesia) 30 ml PO HS PRN PRN Reason: Constipation Stop: 03/10/19 01:00 Memantine (Namenda) 10 mg PO BID [facility] Stop: 03/10/19 08:59 Last Admin: 01/17/19 10:12 Dose: Not Given Nitroglycerin (Nitrostat) 0.4 mg SL Q5MIN PRN PRN Reason: Chest Pain Stop: 03/10/19 01:00 Simvastatin (Zocor) 20 mg PO HS [facility]; Protocol Stop: 03/10/19 20:59 Last Admin: 01/16/19 20:32 Dose: 20 mg Zolpidem Tartrate (Ambien) 5 mg PO HS PRN PRN Reason: Insomnia Stop: 03/10/19 01:00 Last Admin: 01/15/19 20:47 Dose: 5 mg General: demented HEENT: PERRLA Neck: Supple, No JVD, No thyromegaly Lungs: CTAB Cardiovascular: RRR, Normal S1, Normal S2, with murmur Abdomen: soft, globular, positive bowel sound Extremities: excoriation, contracture Neurological: no change, disorganized Internal Medicine Assmt/Plan - Assessment Assessment: ASSESSMENT AND PLAN: 1. Hypertension. 2. Diabetes. 3. History of congestive heart failure, compensated. 4. Hypercholesterolemia. 5. Dementia. 6. Osteoarthritis. 7. Paroxysmal atrial fibrillation. 8. Hyponatremia. 9. Renal insufficiency. - Plan Plan: PLAN: PLAN: Continue the patient on oxygen and bronchodilator treatment. Continue on insulin sliding scale. __on__ amiodarone. We will check the patient's thyroid panel. Continue statin. Continue with current care. We will empirically treat the patient with elimite x 1 for the rashes. Wound care is following the patient as well. We will continue to follow. Nutritional Asmnt/Malnutr-PDOC - Dietary Evaluation Malnutrition Findings (Please click <Entered> for more info): Nutritional Asmnt/Malnutrition Start: 01/09/19 15: 57 Text: Status: Complete Freq: Protocol: Document 01/09/19 16:08 LCHENG (Rec: 01/09/19 16:14 LCMARING [email or web address]) Nutritional Asmnt/Malnutrition Patient General Information Nutritional Screening High Risk Diagnosis psychosis Pertinent Medical Hx/Surgical Hx per nurse note 01/09: atrial fibrillation,UTI,DM,HTN,COPD, osteoatrhritis and hyperlipidemia Subjective Information Consult received for robert sccore 13, general macular red rash. pt seen lying in bed, awake and confused, not able to answer questions at this time. Per EMR, PO intake 100%. Glucose 212 at admission noted. BROOKE valera stated ordered liquid amino acid in medication but it is carried in dietary. Current Diet Order/ Nutrition Support [facility] soft Na 2gm Pertinent Medications vit D3, pepcid, iron, humalog Pertinent Labs 01/09 POC 91-120 01/08 glucose 212, BUN 31, Na 135, alb 3.8 Nutritional Hx/Data Height 1.75 m Height (Calculated Centimeters) 175.3 Current Weight (lbs) 79.379 kg Weight (Calculated Kilograms) 79.4 Weight (Calculated Grams) 11079.7 [place] Body Weight 160 Body Mass Index (BMI) 25.8 Weight Status Overweight GI Symptoms GI Symptoms None Last BM not indicated Difficult in: None Skin Integrity/Comment: rash Current %PO Good (75-100%) Estimated Nutritional Goals BEE in Kcals: Using Current wt Calories/Kcals/Kg 23-27 Kcals Calculated 4887-4107 Protein: Using Current wt Protein g/k Protein Calculated 80 Fluid: ml 1840-2160ml (1ml/kcal) Nutritional Problem 1. Problem Problem altered nutrition related labs Etiology hyperglycemia Signs/Symptoms: glucose 212 at admission Malnutrition Alert Is there a minimum of two criteria No selected? Query Text:Check all the applicable criteria. A minimum of two criteria are recommended for diagnosis of either severe or non-severe malnutrition. Malnutrition Related to Morbid Obesity Malnutrition related to morbid obesity No Intervention/Recommendation Comments 1. Continue with current diet as ordered. Will continue monitor glucose level. Consider adding CCHO diet if glucose continue elevated. 2. Monitor PO intake, wt, labs and skin integrity 3. F/U as high risk in 2-3 days Expected Outcomes/Goals Expected Outcomes/Goals 1. PO intake to meet at least 75% of nutritional needs. 2. Wt stability, skin to remain intact, labs to approach WNL.
--- NOTE | 2019-01-17 13:00 | Progress Notes ---
DATE: SUBJECTIVE: Chart was reviewed and the patient interviewed. I also discussed the patient's condition with the staff and reviewed records and labs. The patient is still depressed, but calm and cooperative and confused. The patient also seems to be disoriented. Also, flat affect. The patient also is withdrawn and guarded. Otherwise, the patient slept better and he is compliant with taking his medications. ASSESSMENT: The patient is still confused and depressed. TREATMENT PLAN: Continue to monitor his behavior and his condition closely. Also, continue adjusting psychotropic medications and work on behavioral modification and his ineffective coping. JOB# [id number]
[2019-01-18] MEDS: INSULIN LISPRO SLIDING SCALE 100 UNITS/ML UNIT SUBQ SCH ×2 (06:56→12:05)
[2019-01-18] MEDS: Ferrous Sulfate 325 MG TAB PO SCH (08:11)
[2019-01-18] MEDS: Multivitamin w/ Minerals Tab PO SCH (08:11)
--- NOTE | 2019-01-18 12:42 | Internal Medicine Prog Note ---
Internal Medicine Subjective - Subjective Patient seen and examined:: with staff, chart reviewed Patient is:: awake, verbal, interactive, agitated, confused Per staff patient has:: no adverse event, no episodes of fall, tolerating meds Internal Medicine Objective - Results Result Diagrams: 01/08/19 20:48 01/08/19 20:48 Recent Labs: Laboratory Last Values WBC 8.9 Th/cmm (4.8-10.8) 01/08/19 20:48 RBC 5.13 Mil/cmm (3.80-5.80) 01/08/19 20:48 Hgb 15.0 gm/dL (12-16) 01/08/19 20:48 Hct 46.0 % (41.0-60) 01/08/19 20:48 MCV 89.8 fl (80-99) 01/08/19 20:48 MCH 29.3 pg (27.0-31.0) 01/08/19 20:48 MCHC Differential 32.6 pg (28.0-36.0) 01/08/19 20:48 RDW 13.5 % (11.5-20.0) 01/08/19 20:48 Plt Count 237 Th/cmm (150-400) 01/08/19 20:48 MPV 8.6 fl 01/08/19 20:48 Neutrophils % 72.5 % (40.0-80.0) 01/08/19 20:48 Lymphocytes % 16.5 % (20.0-50.0) L 01/08/19 20:48 Monocytes % 6.2 % (2.0-10.0) 01/08/19 20:48 Eosinophils % 4.7 % (0.0-5.0) 01/08/19 20:48 Basophils % 0.1 % (0.0-2.0) 01/08/19 20:48 Sodium 135 mEq/L (136-145) L 01/08/19 20:48 Potassium 3.9 mEq/L (3.5-5.1) 01/08/19 20:48 Chloride 101 mEq/L (98-107) 01/08/19 20:48 Carbon Dioxide 26.7 mEq/L (21.0-31.0) 01/08/19 20:48 Anion Gap 11.2 (7.0-16.0) 01/08/19 20:48 BUN 31 mg/dL (7-25) H 01/08/19 20:48 Creatinine 1.2 mg/dL (0.7-1.3) 01/08/19 20:48 Est GFR ( Amer) TNP 01/08/19 20:48 Est GFR (Non-Af Amer) TNP 01/08/19 20:48 BUN/Creatinine Ratio 25.8 01/08/19 20:48 Glucose 212 mg/dL (70-105) H 01/08/19 20:48 POC Glucose 103 MG/DL (70 - 105) 01/18/19 06:24 Calcium 9.4 mg/dL (8.6-10.3) 01/08/19 20:48 Total Bilirubin 0.3 mg/dL (0.3-1.0) 01/08/19 20:48 AST 25 U/L (13-39) 01/08/19 20:48 ALT 30 U/L (7-52) 01/08/19 20:48 Alkaline Phosphatase 145 U/L (34-104) H 01/08/19 20:48 Troponin I < 0.01 ng/mL (0.01-0.05) L 01/08/19 20:48 B-Natriuretic Peptide 28.9 pg/mL (5.0-100.0) 01/08/19 20:48 Total Protein 7.3 gm/dL (6.0-8.3) 01/08/19 20:48 Albumin 3.8 gm/dL (4.2-5.5) L 01/08/19 20:48 Globulin 3.5 gm/dL 01/08/19 20:48 Albumin/Globulin Ratio 1.1 (1.0-1.8) 01/08/19 20:48 Triglycerides 115 mg/dL (<150) 01/08/19 20:48 Cholesterol 106 mg/dL (<200) 01/08/19 20:48 LDL Cholesterol Direct 49 mg/dL (75-193) L 01/08/19 20:48 HDL Cholesterol 33 mg/dL (23-92) 01/08/19 20:48 TSH 2.82 uIU/ml (0.34-5.60) 01/08/19 20:48 Urine Source MIDSTREAM 01/08/19 22:20 Urine Color YELLOW 05/21/19 22:20 Urine Clarity CLEAR (CLEAR) 01/08/19 22:20 Urine pH 5.5 (4.6 - 8.0) 01/08/19 22:20 Ur Specific [place] 1.015 (1.005-1.030) 01/08/19 22:20 Urine Protein NEGATIVE mg/dL (NEGATIVE) 01/08/19 22:20 Urine Glucose (UA) 100 mg/dL (NEGATIVE) H 01/08/19 22:20 Urine Ketones NEGATIVE mg/dL (NEGATIVE) 01/08/19 22:20 Urine Blood TRACE (NEGATIVE) 01/08/19 22:20 Urine Nitrate NEGATIVE (NEGATIVE) 01/08/19 22:20 Urine Bilirubin NEGATIVE (NEGATIVE) 01/08/19 22:20 Urine Urobilinogen 0.2 E.U./dL (0.2 - 1.0) 01/08/19 22:20 Ur Leukocyte Esterase MODERATE (NEGATIVE) H 01/08/19 22:20 Urine RBC 2-5 /hpf (0-5) H 01/08/19 22:20 Urine WBC 6-10 /hpf (0-5) 01/08/19 22:20 Ur Epithelial Cells OCCASIONAL /lpf (FEW) 01/08/19 22:20 Urine Bacteria FEW /hpf (NONE SEEN) 01/08/19 22:20 Scabies Examination NEGATIVE FOR SCABIES 01/09/19 13:06 - Physical Exam Vitals and I&O: Vital Signs Temp 97.8 F 01/18/19 06:42 Pulse 88 01/18/19 10:29 Resp 18 01/18/19 10:29 BP 115/72 01/18/19 10:29 Pulse Ox 98 01/18/19 10:29 Intake & Output 01/17/19 01/18/19 01/18/19 18:59 06:59 18:59 Intake Total 1200 220 Output Total 1 Balance 1200 219 Intake: Oral 1200 220 Output: Urine/Stool Mix 1 Other: # Voids 2 # Bowel Movements 1 1 Active Medications: Current Medications Acetaminophen (Tylenol) 650 mg PO Q4HR PRN PRN Reason: Pain (Mild) Stop: 03/10/19 01:00 Amiodarone HCl (Cordarone) 200 mg PO DAILY SILAS Stop: 03/10/19 08:59 Last Admin: 01/18/19 08:11 Dose: 200 mg Cholecalciferol (Vitamin D3) 1,000 iu PO DAILY SILAS Stop: 03/10/19 08:59 Last Admin: 01/18/19 08:11 Dose: 1,000 iu Dextrose (D50w) 50 ml IVP PRN PRN PRN Reason: Blood Glucose less than 70 Stop: 03/10/19 17:56 Dextrose (Glutose 40%) 18.75 gm PO PRN PRN PRN Reason: Blood Glucose less than 70 Stop: 03/10/19 17:56 Escitalopram Oxalate (Lexapro) 10 mg PO HS [facility]; Protocol Stop: 03/16/19 20:59 Last Admin: 01/17/19 20:56 Dose: 10 mg Famotidine (Pepcid) 20 mg PO DAILY [facility] Stop: 03/10/19 08:59 Last Admin: 01/18/19 08:11 Dose: 20 mg Ferrous Sulfate (Iron) 325 mg PO DAILY SILAS Stop: 03/10/19 08:59 Last Admin: 01/18/19 08:11 Dose: 325 mg Glucagon (Glucagen) 1 mg IM PRN PRN PRN Reason: Blood Glucose less than 70 Stop: 03/10/19 17:56 Insulin Human Lispro (Humalog Insulin Sliding Scale) 0 units SUBQ ACHS [facility]; Protocol Stop: 03/10/19 20:59 Last Admin: 01/18/19 12:05 Dose: Not Given Lorazepam (Ativan) 0.5 mg PO Q4HR PRN; Protocol PRN Reason: Anxiety Stop: 02/08/19 00:54 Magnesium Hydroxide (Milk Of Magnesia) 30 ml PO HS PRN PRN Reason: Constipation Stop: 03/10/19 01:00 Memantine (Namenda) 10 mg PO BID SILAS Stop: 03/10/19 08:59 Last Admin: 01/18/19 08:11 Dose: 10 mg Nitroglycerin (Nitrostat) 0.4 mg SL Q5MIN PRN PRN Reason: Chest Pain Stop: 03/10/19 01:00 Simvastatin (Zocor) 20 mg PO HS [facility]; Protocol Stop: 03/10/19 20:59 Last Admin: 01/17/19 20:56 Dose: 20 mg Zolpidem Tartrate (Ambien) 5 mg PO HS PRN PRN Reason: Insomnia Stop: 03/10/19 01:00 Last Admin: 01/15/19 20:47 Dose: 5 mg General: demented HEENT: PERRLA Neck: Supple, No JVD, No thyromegaly Lungs: CTAB Cardiovascular: RRR, Normal S1, Normal S2, with murmur Abdomen: soft, globular, positive bowel sound Extremities: excoriation, contracture Neurological: no change, disorganized Internal Medicine Assmt/Plan - Assessment Assessment: ASSESSMENT AND PLAN: 1. Hypertension. 2. Diabetes. 3. History of congestive heart failure, compensated. 4. Hypercholesterolemia. 5. Dementia. 6. Osteoarthritis. 7. Paroxysmal atrial fibrillation. 8. Hyponatremia. 9. Renal insufficiency. - Plan Plan: PLAN: PLAN: Continue the patient on oxygen and bronchodilator treatment. Continue on insulin sliding scale. __on__ amiodarone. We will check the patient's thyroid panel. Continue statin. Continue with current care. We will empirically treat the patient with elimite x 1 for the rashes. Wound care is following the patient as well. We will continue to follow. Nutritional Asmnt/Malnutr-PDOC - Dietary Evaluation Malnutrition Findings (Please click <Entered> for more info): Nutritional Asmnt/Malnutrition Start: 01/09/19 15: 57 Text: Status: Complete Freq: Protocol: Document 01/09/19 16:08 LCHENG (Rec: 01/09/19 16:14 [email or web address] [email or web address]) Nutritional Asmnt/Malnutrition Patient General Information Nutritional Screening High Risk Diagnosis psychosis Pertinent Medical Hx/Surgical Hx per nurse note 01/09: atrial fibrillation,UTI,DM,HTN,COPD, osteoatrhritis and hyperlipidemia Subjective Information Consult received for robert sccore 13, general macular red rash. pt seen lying in bed, awake and confused, not able to answer questions at this time. Per EMR, PO intake 100%. Glucose 212 at admission noted. BROOKE valera stated ordered liquid amino acid in medication but it is carried in dietary. Current Diet Order/ Nutrition Support [facility] soft Na 2gm Pertinent Medications vit D3, pepcid, iron, humalog Pertinent Labs 01/09 POC 91-120 01/08 glucose 212, BUN 31, Na 135, alb 3.8 Nutritional Hx/Data Height 1.75 m Height (Calculated Centimeters) 175.3 Current Weight (lbs) 79.379 kg Weight (Calculated Kilograms) 79.4 Weight (Calculated Grams) 29846.7 [place] Body Weight 160 Body Mass Index (BMI) 25.8 Weight Status Overweight GI Symptoms GI Symptoms None Last BM not indicated Difficult in: None Skin Integrity/Comment: rash Current %PO Good (75-100%) Estimated Nutritional Goals BEE in Kcals: Using Current wt Calories/Kcals/Kg 23-27 Kcals Calculated 3765-4800 Protein: Using Current wt Protein g/k Protein Calculated 80 Fluid: ml 1840-2160ml (1ml/kcal) Nutritional Problem 1. Problem Problem altered nutrition related labs Etiology hyperglycemia Signs/Symptoms: glucose 212 at admission Malnutrition Alert Is there a minimum of two criteria No selected? Query Text:Check all the applicable criteria. A minimum of two criteria are recommended for diagnosis of either severe or non-severe malnutrition. Malnutrition Related to Morbid Obesity Malnutrition related to morbid obesity No Intervention/Recommendation Comments 1. Continue with current diet as ordered. Will continue monitor glucose level. Consider adding CCHO diet if glucose continue elevated. 2. Monitor PO intake, wt, labs and skin integrity 3. F/U as high risk in 2-3 days Expected Outcomes/Goals Expected Outcomes/Goals 1. PO intake to meet at least 75% of nutritional needs. 2. Wt stability, skin to remain intact, labs to approach WNL.
--- NOTE | 2019-01-18 16:59 | Progress Notes ---
DATE: 01/17/2019 SUBJECTIVE: Chart reviewed and the patient interviewed. Also discussed the patient's condition with the staff and reviewed the records and labs. The patient is still agitated and is still anxious and withdrawn. He is interacting minimally with others. The patient also is still feeling hopeless and helpless at times. He does not want to be bothered and tends to stay by himself most of the time. The patient also still has difficulty expressing himself and expressing his feelings. Otherwise, the patient is compliant with taking his medications with no side effects of medications. ASSESSMENT: The patient is still depressed and confused, but no aggressive behavior. TREATMENT PLAN: Continue to monitor his behavior and his condition closely. Also, continue adjusting psychotropic medications and work on his ineffective coping. [facility]# [id number]
--- NOTE | 2019-01-19 05:19 | Discharge Summary ---
DATE OF DISCHARGE: 01/18/2019 PATIENT'S AGE: 78-year-old. SEX: Male. PHYSICIAN: Jair Galeana MD, MPH FINAL DIAGNOSES: PRIMARY DIAGNOSIS: Depressive mood disorder, unspecified, without psychotic features. SECONDARY DIAGNOSIS: Dementia, moderate, without psychotic features. REASON FOR HOSPITALIZATION: The patient was admitted to the hospital from [facility]. The patient was severely depressed and guarded and withdrawn and was feeling hopeless and helpless and interacting minimally with others. HOSPITAL COURSE: The patient continued to be severely anxious and depressed. The patient also was interacting minimally with others. The patient also was not suicidal or homicidal. Also wanted to be left alone and was slightly suspicious and paranoid. The patient was started on Lexapro and the dose adjusted to 10 mg every day. Also, continued to take Namenda in a dose of 10 mg twice a day. Gradually, the patient's affect was brighter. The patient was less agitated and less depressed. Also was interacting more with peers and with others. The patient was accepted to go back to [facility]. Physical exam of the patient showed no major medical problems. Blood workup was basically within normal. AFTER DISCHARGE PLANS: The patient discharged from the hospital to [facility] with plans to follow up there. EXPECTED OUTCOME AFTER DISCHARGE: Fair if the patient continues with his outpatient treatment and continue with his discharge plans. [facility]# [id number]
== END 2019-01-18 14:30 | DRG 881 ==
LOC: ER 20:11 → GERO2 23:12 → GERO 01-11 04:36 → UNDODISIN 01-18 14:30
PROVIDERS: ADMIT Psychiatry & Neurology Psychiatry; ATTEND Psychiatry & Neurology Psychiatry
DX: F32.9 Major depressive disorder, single episode, unspecified (principal); I11.0 Hypertensive heart disease with heart failure; E87.1 Hypo-osmolality and hyponatremia; N39.0 Urinary tract infection, site not specified; I50.9 Heart failure, unspecified; I48.0 Paroxysmal atrial fibrillation; N28.9 Disorder of kidney and ureter, unspecified; E11.9 Type 2 diabetes mellitus without complications; J44.9 Chronic obstructive pulmonary disease, unspecified; E78.5 Hyperlipidemia, unspecified; E86.0 Dehydration; E78.00 Pure hypercholesterolemia, unspecified; M19.90 Unspecified osteoarthritis, unspecified site; Z87.440 Personal history of urinary (tract) infections
CPT/HCPCS: 36415-UA; 71045-TC; 80053-TC; 80061-TC; 81001-TC; 82948-90; 83036-90; 83880-TC; 84443-TC; 84484-TC; 85025-TC; 87220-90; 93005; 96374; J0696; J7030; Z7610